=== PATIENT | male | born 1960 | race Caucasian/White ===

== ENCOUNTER 2016-07-25 10:57 | Inpatient (IN) | payer BC, MEDICARE ==
[~2016-07-25] VITALS: Ht 177.8 cm; Wt 71.2 kg
[~2016-07-25 10:57] MED LIST: AMLO5TAB2 PO; DOXY100T PO; ERGO500012 PO; FENT1PAT21 TP; FLUT200B INH; LANS30CA PO; LISI10TA2 PO; METO50TA2 PO; PRED-220 PO; PROVENTIL HFA6.7 GM IH; TIOT18CA IH
[2016-07-25] MEDS ORDERED: NITROGLYCERIN SUBLINGUAL 0.4 MG BOTTLE OF 25. SL PRN (11:30)
--- NOTE | 2016-07-25 11:46 | RAD ---
EXAM: Chest, single view. HISTORY: Chest pain. COMPARISON: 12/03/2015. FINDINGS: A frontal view of the chest is obtained. There is no infiltrate, effusion or pneumothorax. The heart is normal in size. There is stable widening of the right peritoneal stripe likely due to tortuous arch great vessels. There are calcified mediastinal granulomas. IMPRESSION: No acute pulmonary finding.
[2016-07-25 11:47] LABS: BASO % 0 % (0-3); EOS % 1 % (0-3); HEMATOCRIT 44.1 % (39.0-53.0); HEMOGLOBIN 15.2 g/dL (13.0-17.5); LYMPH # 0.9 x10^3/uL (1.0-4.8); LYMPH % 22 % (24-48); MEAN CORPUSCULAR HEMOGLOBIN 37 pg (25-35); MEAN CORPUSCULAR HGB CONC 35 g/dL (31-37); MEAN CORPUSCULAR VOLUME 108 fL (79-100); MONO % 11 % (0-9); NEUT % 66 % (31-73); PLATELET COUNT 113 x10^3/uL (140-400)
[2016-07-25 11:56] LABS: PROTHROMBIN TIME PATIENT 12.5 SEC (11.7-14.0)
[2016-07-25 11:57] LABS: CALCIUM 9.1 mg/dL (8.5-10.1); CREATININE 0.7 mg/dL (0.7-1.3); GFR 116.7; POTASSIUM 3.7 mmol/L (3.5-5.1)
[2016-07-25] MEDS ORDERED: ASPIRIN CHEWABLE 81 MG TABLET. PO ONE (12:00)
[2016-07-25 12:03] LABS: ALBUMIN 3.4 g/dL (3.4-5.0); DIRECT BILIRUBIN 0.2 mg/dL (0.0-0.2); TOTAL BILIRUBIN 0.7 mg/dL (0.2-1.0); TOTAL PROTEIN 7.2 g/dL (6.4-8.2)
[2016-07-25 12:11] LABS: CKMB INDEX 3.5 % (0-4)
--- NOTE | 2016-07-25 12:20 | EKG ---
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
--- NOTE | 2016-07-25 12:25 | PHYS DOC ---
Past Medical History Past Medical History: GERD, Heart Disease, Hypertension, Other Additional Past Medical Histor: cardiomyopathy,chronic back pain,DDD, fullbodyneuropathy vsIBM,sleepApnea Past Surgical History: Other Additional Past Surgical Histo: knee sx, urological sx Additional Information: 1/3 of a cigar. Alcohol Use: Occasionally Additional Information: 2 drinks a day. 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 The pain is a tightness and it feels like he can't get a deep enough breath. It's across the center of his chest, slightly worse on the left. He feels dizzy and lightheaded with it. He has not had this type of chest pain before. He has never had a heart attack. Years ago he had a heart catheter and he doesn't believe it showed any coronary artery disease. Patient does have hypertension, he smokes one half cigar daily on most days. He did take his blood pressure medicine this morning. Patient also has a history of wheezing and he took 2 puffs of his albuterol inhaler this morning but that does not seem to be helping. He does have a history of "severe cardiomyopathy with an enlarged heart". He states "they don't know why" he has cardiomyopathy. Once they thought it "might be alcohol". He states he has not had a drink in 4 days and he usually drinks 2 "cocktails" per day. Patient attributes his cardiomyopathy as well as several other medical problems to "stress". He also has "whole body neuropathy". 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 Patient also told me that he had been on fentanyl 100 g patches for chronic pain, he didn't like being on those patches so in cooperation with his doctor he has been decreasing his dose, each decrease has been 1 month in duration, he just recently went down from 50 to 25[address] [employer] [address]ician [address]. Mccormick PCP Dr Elaine Review of Systems Review of Systems Constitutional: Denies fever or chills [] Eyes: Denies change in visual acuity, redness, or eye pain [] HENT: Denies nasal congestion or sore throat [] Respiratory: Denies cough or shortness of breath [] Cardiovascular: As in history of present illness GI: Denies abdominal pain, nausea, vomiting, bloody stools or diarrhea [] : Denies dysuria or hematuria [] Musculoskeletal: Denies back pain or joint pain [] Integument: Denies rash or skin lesions [] Neurologic: Complains of chronic pain, neck pain, neuropathy. Current Medications Current Medications Current Medications Medications (Trade) Dose Ordered Sig/Maryann Start Time Stop Time Status Last Admin Dose Admin Aspirin (Children'S Aspirin) 324 mg 1X ONCE 07/25/16 12:00 07/25/16 12:01 DC 07/25/16 11:41 324 MG Nitroglycerin (Nitrostat) 0.4 mg PRN Q5MIN PRN 07/25/16 11:30 07/26/16 11:29 07/25/16 11:44 0.4 MG Allergies Allergies Allergies Coded Allergies Type Severity Reaction Last Updated Verified codeine Adverse Reaction Mild Nausea and Vomiting 06/28/14 Yes Physical Exam Physical Exam Constitutional: Well developed, well nourished, no acute distress, non-toxic appearance. Alert, mentating normally, good color. HENT: Normocephalic, atraumatic, bilateral external ears normal, oropharynx moist, no oral exudates, nose normal. [] Eyes: conjunctiva normal, no discharge. [] Neck: Normal range of motion, no stridor. [] Cardiovascular:Heart rate regular rhythm, no murmur [] Lungs & Thorax: Bilateral breath sounds clear to auscultation , good air movement throughout, no wheezes, no rales Abdomen: Bowel sounds normal, soft, no tenderness, nondistended, no masses, no pulsatile masses. [] Skin: Warm, dry, no erythema, no rash. [] Extremities: No tenderness, no cyanosis, no clubbing, ROM intact, no edema. [] Neurologic: Alert and oriented X 3, normal motor function, normal sensory function, no focal deficits noted. [] Current Patient Data Vital Signs Vital Signs Date Time Temp Pulse Resp B/P Pulse Ox O2 Delivery O2 Flow Rate FiO2 07/25/16 11:44 58 172/97 07/25/16 11:41 17 94 Room Air 07/25/16 11:11 98.4 98.4 Lab Values Laboratory Tests Test 07/25/16 11:32 White Blood Count 4.0x10^3/uL (4.0-11.0) Red Blood Count 4.10x10^6/uL (4.30-5.70) L Hemoglobin 15.2g/dL (13.0-17.5) Hematocrit 44.1% (39.0-53.0) Mean Corpuscular Volume 108fL (79-100) H Mean Corpuscular Hemoglobin 37pg (25-35) H Mean Corpuscular Hemoglobin Concent 35g/dL (31-37) Red Cell Distribution Width 15.0% (11.5-14.5) H Platelet Count 113x10^3/uL (140-400) L Neutrophils (%) (Auto) 66% (31-73) Lymphocytes (%) (Auto) 22% (24-48) L Monocytes (%) (Auto) 11% (0-9) H Eosinophils (%) (Auto) 1% (0-3) Basophils (%) (Auto) 0% (0-3) Neutrophils # (Auto) 2.6x10^3uL (1.8-7.7) Lymphocytes # (Auto) 0.9x10^3/uL (1.0-4.8) L Monocytes # (Auto) 0.4x10^3/uL (0.0-1.1) Eosinophils # (Auto) 0.0x10^3/uL (0.0-0.7) Basophils # (Auto) 0.0x10^3/uL (0.0-0.2) Prothrombin Time 12.5SEC (11.7-14.0) Prothrombin Time INR 1.0 (0.8-1.1) Sodium Level 142mmol/L (136-145) Potassium Level 3.7mmol/L (3.5-5.1) Chloride Level 104mmol/L (98-107) Carbon Dioxide Level 31mmol/L (21-32) Anion Gap 7 (6-14) Blood Urea Nitrogen 11mg/dL (8-26) Creatinine 0.7mg/dL (0.7-1.3) Estimated GFR (Cockcroft-Gault) 116.7 Glucose Level 107mg/dL (70-99) H Calcium Level 9.1mg/dL (8.5-10.1) Magnesium Level 2.0mg/dL (1.8-2.4) Total Bilirubin 0.7mg/dL (0.2-1.0) Direct Bilirubin 0.2mg/dL (0.0-0.2) Aspartate Amino Transferase (AST) 83U/L (15-37) H Alanine Aminotransferase (ALT) 45U/L (16-63) Alkaline Phosphatase 88U/L (46-116) Creatine Kinase 113U/L (39-308) Creatine Kinase MB (Mass) 4.0ng/mL (0.0-3.6) H Creatine Kinase MB Relative Index 3.5% (0-4) Troponin I Quantitative < 0.017ng/mL (0.000-0.055) ZA-Blb-U-Type Natriuretic Peptide 543pg/mL (0-124) H Total Protein 7.2g/dL (6.4-8.2) Albumin 3.4g/dL (3.4-5.0) Laboratory Tests 07/25/16 11:32 Laboratory Tests 07/25/16 11:32 EKG EKG 12-lead EKG read by me. Sinus rhythm. Heart rate 58. There are no acute ST or T wave changes indicative of ischemia or infarction. No STEMI. 1107 [] Radiology/Procedures Radiology/Procedures One view portable chest x-ray read by the radiologist. Heart size is normal. Lung negron are clear. No pulmonary edema or other acute problem. [] Course & Med Decision Making Course & Med Decision Making Pertinent Labs and Imaging studies reviewed. (See chart for details) 55-year-old male with a history of cardiomyopathy, by his history it sounds likely to be alcoholic, presents with some substernal chest tightness today that is new for him. He does not have a history of ischemic heart disease. I discussed with him that we need to get some labs, chest x-ray, we will try a nitroglycerin and give him aspirin, but he likely will need to be hospitalized for rule out ischemic pain and further evaluation. ED nursing staff reported that the patient's blood pressure dropped from 170s to 120s after one sublingual nitroglycerin so that the only one he got. He did get a aspirin. I told the patient that from my assessment of his situation, in case he has never been told before, his cardiomyopathy may very well be due to alcohol and that he should not drink any at all, not even a little bit. He states he has never been told that before so I clarified that indeed that is the recommendation. Cardiac enzymes negative. ED evaluation otherwise unremarkable. I do feel the patient should be hospitalized to rule out cardiac etiology of the pain and he is agreeable to do so. I discussed the case with Dr. Jennings, taking calls for Dr. Elaine. He will admit the patient. I wrote bridge orders. [] Dragon Disclaimer Dragon Disclaimer This electronic medical record was generated, in whole or in part, using a voice recognition dictation system. Departure Departure Impression: Primary Impression: Chest pain Disposition: ADMITTED INPATIENT Admitting Physician: Leonides Jennings Condition: STABLE Referrals: KIERSTEN ELAINE MD (PCP) SCOTT FUENTES MD Jul 25, 2016 12:25
[2016-07-25 13:25] VITALS: BP 172/108
[2016-07-25] MEDS ORDERED: ALBU8.5H5 INH (14:05)
[2016-07-25] MEDS ORDERED: FENT1PAT15 TD (14:05)
[2016-07-25] MEDS ORDERED: CHLO10CA5 PO (14:05)
[2016-07-25] MEDS ORDERED: METO50TA10 PO (14:05)
[2016-07-25 14:40] VITALS: BP 161/99
[2016-07-25] MEDS ORDERED: ACETAMINOPHEN 325 MG TABLET. PO PRN (18:30)
[2016-07-25] MEDS ORDERED: MORPHINE SULFATE 2 MG/ML DISP.SYRIN. IV PRN (18:30)
[2016-07-25] MEDS ORDERED: HYDROCODONE/APAP 5/325MG TABLET. PO PRN (18:30)
[2016-07-25] MEDS ORDERED: ANTI-COAG MONITOR BY PHARMACY. MC PRN (18:45)
[2016-07-25] MEDS ORDERED: HEPARIN 25,000UTS/500ML PREMIX 500 ML IV PRN ×3 (18:45→20:45)
[2016-07-25] MEDS ORDERED: AMLODIPINE BESYLATE 5 MG TABLET. PO PRN (18:45)
[2016-07-25 19:00] VITALS: BP 143/90
[2016-07-25] MEDS ORDERED: AMLODIPINE BESYLATE 5 MG TABLET. PO ONE (19:00)
[2016-07-25] MEDS ORDERED: HEPARIN 25,000UTS/500ML PREMIX 500 ML IV ONE (19:00)
[2016-07-25] MEDS ORDERED: HEPARIN for IV BOLUS 10,000 UNIT/10 ML VIAL. IV PRN (19:45)
[2016-07-25 20:29] VITALS: BP 159/91
[2016-07-25] MEDS: LISINOPRIL 10 MG TABLET PO SCH (21:11)
[2016-07-25] MEDS ORDERED: LORAZEPAM 0.5 MG TABLET. PO PRN (21:15)
[2016-07-25 23:41] VITALS: BP 139/73
[2016-07-26 02:20] LABS: HEMATOCRIT 38.9 % (39.0-53.0); HEMOGLOBIN 12.9 g/dL (13.0-17.5); RED BLOOD COUNT 3.53 x10^6/uL (4.30-5.70); RED CELL DISTRIBUTION WIDTH 14.7 % (11.5-14.5); WHITE BLOOD COUNT 3.7 x10^3/uL (4.0-11.0)
[2016-07-26] MEDS ORDERED: FENTANYL 25MCG/HR PATCH. TD SCH (03:00)
[2016-07-26 03:29] VITALS: BP 167/88
[2016-07-26] MEDS ORDERED: PANTOPRAZOLE 40 MG TABLET.DR. PO SCH (07:30)
[2016-07-26 07:50] VITALS: BP 166/98
[2016-07-26] MEDS: IPRATRPIUM/ALBUTEROL 0.5/2.5MG 3 ML NEBU. NEB SCH ×2 (08:06→11:06)
[2016-07-26] MEDS: LISINOPRIL 10 MG TABLET PO SCH (08:10)
--- NOTE | 2016-07-26 10:58 | PDOC ---
Provider Note Provider Note See admission H&P dictation #[id number] Impression: 1. Atypical chest pain: 2. Hypertension: 3. Chronic back pain with neuropathy: 4. Mild pancytopenia, chronic and possibly due to alcohol abuse: 5. History of hiatal hernia, GERD: 6. Reported history of cardiomyopathy with an ejection fraction of 55% in 11/2015 : 7. Recent viral illness: 8. Obstructive sleep apnea: ZAK CONTRERAS MD Jul 26, 2016 10:58
[2016-07-26 11:59] VITALS: BP 164/96
[2016-07-26] MEDS ORDERED: AMLODIPINE BESYLATE 10 MG TABLET. PO SCH (12:00)
[2016-07-26 12:09] VITALS: BP 167/88
--- NOTE | 2016-07-26 12:24 | PDOC2 ---
CONSULT Date of Consult Date of Consult DATE: 07/26/16 TIME: 12:17 Reason for Consult Reason for Consult: chest pain Referring Physician Referring Physician: Dr. Jennings Identification/Chief Complaint Chief Complaint Chest pain Source Source: Patient History of Present Illness Reason for Visit: The patient is a 55-year-old male admitted last night through the emergency room for episodes of chest pain. Posttreatment the patient improved and this morning the patient has had no chest pain. He reports a history of a cardiomyopathy but not probable coronary artery disease. He did have an echocardiogram in November of last year that showed a normal ejection fraction. Initial EKG showed sinus rhythm with nonspecific ST-T wave changes. Troponins have been normal 3. He is now resting comfortably in bed. Past Medical History Cardiovascular: CHF, HTN, Other (possible cardiomyopathy.) CENTRAL NERVOUS SYSTEM: Periperal neuropathy GI: GERD Musculoskeletal: Other (chronic back pain.) Past Surgical History Past Surgical History: No pertinent history Family History Family History: Heart Disease Social History ALCOHOL: other (the patient reports 2 drinks a day. He also occasionally smokes cigars.) Lives: with Family Domestic Violence: Neg Current Problem List Problem List Problems Medical Problems: (1) Chest pain Status: Acute Current Medications Current Medications Current Medications Aspirin (Children'S Aspirin) 324 mg 1X ONCE PO Last administered on 07/25/16 11:41; Start 07/25/16 at 12:00; Stop 07/25/16 at 12:01; Status DC Nitroglycerin (Nitrostat) 0.4 mg PRN Q5MIN PRN SL CP RATING > 1/10 Last administered on 07/25/16 11:44; Start 07/25/16 at 11:30; Stop 07/26/16 at 11:29; Status DC Morphine Sulfate 2 mg PRN Q2HR PRN IV PAIN; Start 07/25/16 at 18:30 Acetaminophen/ Hydrocodone Bitart (Lortab 5/325) 1 tab PRN Q4HRS PRN PO PAIN Last administered on 07/26/16 01:00; Start 07/25/16 at 18:30 Acetaminophen (Tylenol) 650 mg PRN Q6HRS PRN PO MILD PAIN / TEMP Last administered on 07/25/16 18:52; Start 07/25/16 at 18:30 Amlodipine Besylate (Norvasc) 5 mg 1X ONCE PO Last administered on 07/25/16 18 :46; Start 07/25/16 at 19:00; Stop 07/25/16 at 19:01; Status DC Amlodipine Besylate 5 mg 5 mg PRN Q4HRS PRN PO ELEVATED BP, SEE COMMENTS; Start 07/25/16 at 18:45 Heparin Sodium/ Dextrose 500 ml @ 0 mls/hr CONT PRN IV SEE I/O RECORD; Start at 18:45; Status Cancel Info 1 each 1 each PRN DAILY PRN MC SEE COMMENTS; Start 07/25/16 at 18:45 Heparin Sodium/ Dextrose 500 ml @ 0 mls/hr 1X ONCE IV Last administered on 07/25 20:13; Start 07/25/16 at 19:00; Stop 07/25/16 at 19:01; Status DC Heparin Sodium/ Dextrose 500 ml @ 0 mls/hr CONT PRN IV SEE I/O RECORD; Start at 19:45; Status Cancel Heparin Sodium (Porcine) 1800 unit 1,800 unit PRN Q6HRS PRN IV FOR UFH LEVEL LESS THAN 0.2 Last administered on 07/25/16 20:44; Start 07/25/16 at 19:45 Heparin Sodium/ Dextrose 500 ml @ 0 mls/hr CONT PRN IV SEE I/O RECORD Last administered on 07/25/16 20:15; Start 07/25/16 at 20:45 Lorazepam (Ativan) 0.5 mg PRN TID PRN PO WITHDRAWAL IRRITABILITY Last administered on 07/25/16 21:11; Start 07/25/16 at 21:15 Fentanyl (Duragesic 25mcg/ Hr Patch) 1 patch Q3DAYS TD Last administered on 07/26 02:14; Start 07/26/16 at 03:00 Lisinopril (Prinivil) 10 mg BID PO Last administered on 07/26/16 08:10; Start 07/25/16 at 21:00 Pantoprazole Sodium (Protonix) 40 mg DAILYAC PO Last administered on 07/26/16 08:09; Start 07/26/16 at 07:30 Albuterol/ Ipratropium (Duoneb) 3 ml RTQID NEB ; Start 07/26/16 at 08:00 Amlodipine Besylate (Norvasc) 10 mg DAILY PO Last administered on 07/26/16t 12: 09; Start 07/26/16 at 12:00 Active Scripts Active Spiriva (Tiotropium [place]) 18 Mcg Cap.w.dev 1 Cap IH DAILY Lisinopril 10 Mg Tablet 20 Tab PO BID Reported Metoprolol Succinate 50 Mg Tab.er.24h 50 Mg PO DAILY Proair Hfa (Albuterol Sulfate) 8.5 Gm Hfa.aer.ad 1-2 Puff INH PRN Q4-6HRS PRN FENTANYL 25mcg/hr (Fentanyl) 1 Each Patch.td72 25 Mcg TD Q3DAYS Chlordiazepoxide Hcl 10 Mg Capsule 10 Mg PO PRN TID PRN Lansoprazole 30 Mg Capsule.dr 1 Cap PO DAILY Allergies Allergies: Coded Allergies: codeine (Verified Adverse Reaction, Mild, Nausea and Vomiting, 06/28/14) ROS General: YES: Fatigue Cardiovascular: yes Chest Pain Musculoskeletal: Yes Joint Pain Physical Exam General: No acute distress HEENT: Atraumatic Lungs: Clear to auscultation Heart: Regular rate Abdomen: Normal bowel sounds Extremities: No clubbing Vitals VITALS Vital Signs Date Time Temp Pulse Resp B/P Pulse Ox O2 Delivery O2 Flow Rate FiO2 07/26/16 12:09 55 167/88 07/26/16 08:06 94 Room Air 07/26/16 07:50 97.1 18 97.1 Labs Labs Laboratory Tests Test 07/25/16 11:32 07/25/16 18:40 07/26/16 02:00 07/26/16 08:52 White Blood Count 4.0x10^3/uL (4.0-11.0) 3.7x10^3/uL (4.0-11.0) Red Blood Count 4.10x10^6/uL (4.30-5.70) 3.53x10^6/uL (4.30-5.70) Hemoglobin 15.2g/dL (13.0-17.5) 12.9g/dL (13.0-17.5) Hematocrit 44.1% (39.0-53.0) 38.9% (39.0-53.0) Mean Corpuscular Volume 108fL (79-100) 110fL (79-100) Mean Corpuscular Hemoglobin 37pg (25-35) 37pg (25-35) Mean Corpuscular Hemoglobin Concent 35g/dL (31-37) 33g/dL (31-37) Red Cell Distribution Width 15.0% (11.5-14.5) 14.7% (11.5-14.5) Platelet Count 113x10^3/uL (140-400) 101x10^3/uL (140-400) Neutrophils (%) (Auto) 66% (31-73) Lymphocytes (%) (Auto) 22% (24-48) Monocytes (%) (Auto) 11% (0-9) Eosinophils (%) (Auto) 1% (0-3) Basophils (%) (Auto) 0% (0-3) Neutrophils # (Auto) 2.6x10^3uL (1.8-7.7) Lymphocytes # (Auto) 0.9x10^3/uL (1.0-4.8) Monocytes # (Auto) 0.4x10^3/uL (0.0-1.1) Eosinophils # (Auto) 0.0x10^3/uL (0.0-0.7) Basophils # (Auto) 0.0x10^3/uL (0.0-0.2) Prothrombin Time 12.5SEC (11.7-14.0) Prothromb Time International Ratio 1.0 (0.8-1.1) Sodium Level 142mmol/L (136-145) Potassium Level 3.7mmol/L (3.5-5.1) Chloride Level 104mmol/L (98-107) Carbon Dioxide Level 31mmol/L (21-32) Anion Gap 7 (6-14) Blood Urea Nitrogen 11mg/dL (8-26) Creatinine 0.7mg/dL (0.7-1.3) Estimated GFR (Cockcroft-Gault) 116.7 Glucose Level 107mg/dL (70-99) Calcium Level 9.1mg/dL (8.5-10.1) Magnesium Level 2.0mg/dL (1.8-2.4) Total Bilirubin 0.7mg/dL (0.2-1.0) Direct Bilirubin 0.2mg/dL (0.0-0.2) Aspartate Amino Transf (AST/SGOT) 83U/L (15-37) Alanine Aminotransferase (ALT/SGPT) 45U/L (16-63) Alkaline Phosphatase 88U/L (46-116) Creatine Kinase 113U/L (39-308) Creatine Kinase MB (Mass) 4.0ng/mL (0.0-3.6) Creatine Kinase MB Relative Index 3.5% (0-4) Troponin I Quantitative < 0.017ng/mL (0.000-0.055) < 0.017ng/mL (0.000-0.055) < 0.017ng/mL (0.000-0.055) GX-Zbp-M-Type Natriuretic Peptide 543pg/mL (0-124) Total Protein 7.2g/dL (6.4-8.2) Albumin 3.4g/dL (3.4-5.0) Heparin Anti-Xa Act, Unfractionated 0.22IU/mL (0.30-0.70) 0.32IU/mL (0.30-0.70) Laboratory Tests Test 07/25/16 18:40 07/26/16 02:00 07/26/16 08:52 Troponin I Quantitative < 0.017ng/mL (0.000-0.055) < 0.017ng/mL (0.000-0.055) White Blood Count 3.7x10^3/uL (4.0-11.0) Red Blood Count 3.53x10^6/uL (4.30-5.70) Hemoglobin 12.9g/dL (13.0-17.5) Hematocrit 38.9% (39.0-53.0) Mean Corpuscular Volume 110fL (79-100) Mean Corpuscular Hemoglobin 37pg (25-35) Mean Corpuscular Hemoglobin Concent 33g/dL (31-37) Red Cell Distribution Width 14.7% (11.5-14.5) Platelet Count 101x10^3/uL (140-400) Heparin Anti-Xa Act, Unfractionated 0.22IU/mL (0.30-0.70) 0.32IU/mL (0.30-0.70) Images Images Chest x-ray shows no acute changes. Assessment/Plan Assessment/Plan 1. Chest pain. Pain has resolved. No acute EKG changes are present. The patient has ruled out for myocardial infarction. At this time would continue medical treatment. Will consider possible outpatient stress testing. 2. Reported history of a cardiomyopathy. Echocardiogram last summer showed normal ejection fraction. Would recheck an echocardiogram to determine if the patient has any decrease in his LV function. 3. Hypertension. Patient blood pressure is under control. Continue to monitor. 4. Gastroesophageal reflux disease. Patient's chest pain may have been secondary to this. Continue present treatments. 5. Chronic pain. History of significant use of pain medications. Will continue as per the primary service. Thank you for allowing us to participate in the care of your patient. ALEX ESPANA MD Jul 26, 2016 12:24
--- NOTE | 2016-07-26 13:04 | CARD ---
APPROVED REPORT EXAM: Two-dimensional and M-mode echocardiogram with Doppler and color Doppler. Other Information Quality : Technically Limited Technically limited study due to rib spacing. INDICATION Dyspnea Cardiomyopathy 2D DIMENSIONS RVDd2.7 (2.9-3.5cm)Left Atrium(2D)3.4 (1.6-4.0cm) IVSd1.1 (0.7-1.1cm)Aortic Root(2D)2.4 (2.0-3.7cm) LVDd4.5 (3.9-5.9cm)LVOT Diameter2.1 (1.8-2.4cm) PWd1.0 (0.7-1.1cm)LVDs2.4 (2.5-4.0cm) FS (%) 25.0 %SV71.9 ml LVEF(%)50.0 (>50%) Aortic Valve AoV Peak Chetan.111.6cm/sAoV VTI22.5cm AO Peak GR.5.0mmHgLVOT VTI 17.52cm AO Mean GR.3mmHgAVA (VTI)2.70cm2 Mitral Valve MV E Vwvupsik68.3cm/sMV DECEL HIFT091qe MV A Vdkrxatd48.6cm/sE/A Ratio1.1 TDI Lateral E' P. V7.98cm/sMedial E' P. V5.86cm/s E/Lateral E'8.9E/Medial E'12.2 Tricuspid Valve TR P. Drjrxbhh949wp/sRAP [id number] TR Peak Gr.86ozQeFWGP11sfMd Pulmonary Vein S1 Lkhmkevc68.2cm/sS2 Vndvqvyp07.81cm/s D2 Lnqldsyu54.8cm/sPVa [id number] LEFT VENTRICLE The left ventricle is normal size. There is normal left ventricular wall thickness. Left ventricle sy stolic function is low normal. The Ejection Fraction is 50-55%. There is normal LV segmental wall mot ion. Transmitral Doppler flow pattern is Grade II-pseudonormal filling dynamics. RIGHT VENTRICLE The right ventricle is normal size. The right ventricular systolic function is normal. ATRIA The left atrium size is normal. The right atrium size is normal. The interatrial septum is intact wit h no evidence for an atrial septal defect or patent foramen ovale as noted on 2-D or Doppler imaging. AORTIC VALVE The aortic valve is calcified but opens well. Doppler and Color Flow revealed no significant aortic r egurgitation. There is no significant aortic valvular stenosis. MITRAL VALVE The mitral valve is calcified but opens well. There is no evidence of mitral valve prolapse. There is no mitral valve stenosis. Doppler and Color-flow revealed mild mitral regurgitation. TRICUSPID VALVE The tricuspid valve is normal in structure and function. Doppler and Color Flow revealed trace tricus pid regurgitation. The PA pressure was estimated at 26 mmHg. There is no tricuspid valve stenosis. PULMONIC VALVE The pulmonary valve is normal in structure and function. Doppler and Color Flow revealed no pulmonic valvular regurgitation. There is no pulmonic valvular stenosis. GREAT VESSELS The aortic root is normal in size. The ascending aorta is not well seen. The IVC is normal in size an d collapses >50% with inspiration. PERICARDIAL EFFUSION There is no evidence of significant pericardial effusion. Critical Notification Critical Value: No <Conclusion> The left ventricle is normal size. Left ventricle systolic function is low normal. The Ejection Fraction is 50-55%. There is no significant aortic valvular stenosis. Doppler and Color Flow revealed no significant aortic regurgitation. Doppler and Color-flow revealed mild mitral regurgitation. Doppler and Color Flow revealed trace tricuspid regurgitation. The PA pressure was estimated at 26 mmHg.
--- NOTE | 2016-07-26 13:22 | DISCH ---
DISCHARGE INSTRUCTIONS Condition on Discharge Condition on Discharge: Stable Activity After Discharge Activity Instructions for Disc: Activity as tolerated Diet after Discharge Diet after Discharge: Cardiac Additional Diet Restrictions: No ETOH Checks after Discharge Checks after discharge: Check blood press - daily Follow-Up Follow up with: Dr Elaine in 1-2 weeks ZAK CONTRERAS MD Jul 26, 2016 13:22
[2016-07-26] MEDS ORDERED: AMLO10TA2 PO (13:25)
[2016-07-26] MEDS ORDERED: METO50TA10 PO (13:25)
--- NOTE | 2016-07-26 13:27 | PDOC ---
Provider Note Provider Note See discharge summary dictation #[id number] ZAK CONTRERAS MD Jul 26, 2016 13:27
[2016-07-26] MEDS ORDERED: IPRATRPIUM/ALBUTEROL 0.5/2.5MG 3 ML NEBU. NEB PRN (14:45)
--- NOTE | 2016-07-26 15:15 | HP ---
ADMIT DATE: 07/26/2016 CHIEF COMPLAINT: Mid chest pain. HISTORY OF PRESENT ILLNESS: The patient is a 55-year-old male with history of hypertension, possible alcohol abuse, obstructive sleep apnea, hiatal hernia and gastroesophageal reflux disease who noted the onset of pain in his mid chest yesterday when he was bending over and watering his cha. He then stood up and felt somewhat lightheaded. He did have some associated shortness of breath with this, but no radiation of the pain. He tried to use his albuterol with no relief. He noted his blood pressure was 186/110, prompting his evaluation in the Emergency Room. When he was seen in the Emergency Room, he did receive nitroglycerin and he thinks that may have helped a little bit with the pain. He has been having symptoms of heartburn and reflux for which he takes [id number] medication normally. He denies any palpitations. There has been no lower extremity swelling. He is getting over a recent viral illness, which has been going on for the last week. PAST MEDICAL HISTORY: Significant for hypertension, history of reported cardiomyopathy many years ago but appears to be resolved with an echocardiogram in 11/2015, which showed an ejection fraction of 55%, central serous chorioretinopathy, spinal stenosis and chronic low back pain with neuropathy, alcohol abuse, COPD, history of DVT, obstructive sleep apnea, vitamin D deficiency, hiatal hernia and gastroesophageal reflux disease. PAST SURGICAL HISTORY: Left knee surgery, urethral stricture, nasal surgery, left sural nerve biopsy complicated by cellulitis. SOCIAL HISTORY: The patient smokes a a cigar per day. He denies drinking any alcohol for the last 5 days. He is recently and living on his own. FAMILY HISTORY: Father with heart disease and emphysema. Mother with cancer. ALLERGIES TO MEDICATIONS: CODEINE CAUSES GI UPSET. MEDICATIONS: At the time of admission, he has been weaning off fentanyl and was on 100 mcg per hour, but is currently on 25 mcg per hour, albuterol metered dose inhaler 2 puffs q.i.d. p.r.n., Prevacid 30 mg p.o. daily, lisinopril 20 mg p.o. b.i.d., Toprol-XL 50 mg p.o. daily, Spiriva 1 puff daily, Librium 10 mg p.o. t.i.d. p.r.n. withdrawal symptoms. REVIEW OF SYSTEMS: The patient denies any fevers. He has had some upper respiratory congestion with cold symptoms, recently he has been swallowing without any difficulty. He denies any cough or production of sputum at this point. He denies any palpitations, no lower extremity swelling. He denies any nausea or vomiting, although he does have heartburn and reflux, but sometimes causes him to vomit in the middle of the night, but not recently. He denies any melena or blood in his stools. He is voiding without any difficulty and denies any dysuria or hematuria. He has peripheral neuropathy with decreased sensation throughout. He usually gets around relatively well on a level surface, but uses a cane at times. He says that his mood is okay. PHYSICAL EXAMINATION: VITAL SIGNS: At time of admission, temperature 98.4, pulse 69, respiratory rate 20, blood pressure 198/95, O2 sat 97% on room air. GENERAL: The patient is a well-developed, well-nourished male in no acute distress. He appears to be alert and oriented. HEENT: The pupils are equal and round. Extraocular motions are intact. The sclerae is anicteric. The oropharynx is moist. NECK: Without JVD or bruit. No thyromegaly. CHEST: Clear to auscultation bilaterally with okay air movement. There is no significant tenderness to palpation. CARDIOVASCULAR: The heart has a regular rate and rhythm without murmur. ABDOMEN: Positive bowel sounds, soft, nontender, nondistended. No guarding or rebound. EXTREMITIES: There is no edema. NEUROLOGIC: Decreased sensation in the extremities. He does have movement that is symmetric of all the extremities. PSYCHIATRIC: He denies any depression. He appears calm. SKIN: No jaundice. LABORATORY DATA: At the time of admission, WBC 4.0, hemoglobin 15.2, hematocrit 44.1, platelets 113. On repeat this morning, WBC was 3.7, hemoglobin was 12.9 and platelets were 101. INR is 1.0. Sodium 142, potassium 3.7, chloride 104, CO2 of 31, BUN 11, creatinine 0.7, glucose 107, AST was 83, serial troponins x 3 less than 0.017. BNP was 543, albumin was 3.4. Chest x-ray did not show any acute abnormality. The heart was normal size. EKG on preliminary reading showed normal sinus rhythm without any apparent ischemic changes. IMPRESSION: 1. Atypical chest pain could be related to his hiatal hernia, given the onset of his symptoms when he was bending over. 2. Hypertension. 3. Chronic back pain with neuropathy. 4. Mild pancytopenia, chronic and possibly due to alcohol abuse. 5. History of hiatal hernia and gastroesophageal reflux disease. 6. Reported history of cardiomyopathy with an ejection fraction of 55%; however in 11/2015. 7. Recent viral illness. 8. Obstructive sleep apnea. PLAN: The patient is admitted. Cardiology was consulted and echocardiogram has been ordered. This most likely is noncardiac in etiology, but we will defer to cardiology's evaluation and workup. The patient strongly desires to be discharged today. If it is okay with cardiology, he could do additional outpatient workup if needed. We will have him continue his other home medications except for holding the metoprolol for right now since his pulse was slightly low. We will monitor for symptoms of withdrawal, although he does have p.r.n. Librium ordered. We will use DuoNeb breathing treatments on a scheduled basis right now. He was strongly encouraged to continue his abstinence from alcohol. ZAK CONTRERAS MD DR: MARKELL/ruthy JOB#: [id number] / [id number]
[2016-07-26] MEDS ORDERED: ALBUTEROL SULFATE 2.5 MG/3 ML NEBU. NEB PRN (16:00)
--- NOTE | 2016-07-26 21:29 | DS ---
DATE OF DISCHARGE: 07/26/2016 ATTENDING PHYSICIAN: Dr. Zak Contreras. CHIEF COMPLAINT: Chest pain. HISTORY OF PRESENT ILLNESS: The patient is a 55-year-old male who had an episode of chest pain that began when he was bending over watering his cha. This continued with some associated shortness of breath, prompting his evaluation in the Emergency Room. HOSPITAL COURSE: The patient was admitted. Serial cardiac enzymes were negative. He was seen in consultation with Cardiology. He had an echocardiogram done which showed, by verbal report, that there is no significant abnormality. It was felt that his pain was likely due to hiatal hernia or gastroesophageal reflux symptoms. He was also noted to be mildly pancytopenic, probably due to his chronic alcohol abuse. His other chronic problems were stable. DISCHARGE DIAGNOSES: 1. Atypical chest pain, likely due to hiatal hernia and gastroesophageal reflux disease. 2. Hypertension, which his medications were adjusted. 3. Chronic back pain with neuropathy. 4. Mild pancytopenia, which is chronic and likely due to alcohol abuse. DISCHARGE DIET: Cardiac diet. DISCHARGE ACTIVITIES: As tolerated. FOLLOWUP: The patient is to follow up with Dr. Elaine in 1-2 weeks. MEDICATIONS AT THE TIME OF DISCHARGE: Include amlodipine 10 mg p.o. daily, albuterol metered-dose inhaler 2 puffs q.i.d. p.r.n., Librium 10 mg p.o. t.i.d. p.r.n. withdrawal irritability, fentanyl patch 25 mcg per hour q. 72 hours, Prevacid 30 mg p.o. daily, lisinopril 20 mg p.o. b.i.d., Spiriva 1 puff daily, Toprol-XL was decreased to 0.5 mg p.o. daily because he was borderline bradycardic. ZAK CONTRERAS MD DR: MARKELL/ruthy JOB#: [id number] / [id number]
--- NOTE | 2016-07-27 12:34 | ACF ---
Admission Forms Criteria CARDIOLOGY GRG Clinical Indications for Admission to Inpatient Care ( Place 'X' for any and all applicable criteria): Hospital admission is needed for appropriate care of the patient because of ANY ONE of the following (1): [ ] I. Hemodynamic instability as indicated by ALL of the following (1)(2)(3) (4)(5) [ ]a) Vital signs or other findings not as expected for chronic patient condition or baseline [ ]b) Instability indicated by ANY ONE of the following: [ ]i) Hypotension [ ]ii) Symptomatic Tachycardia unresponsive to treatment ( e.g., analgesia, fluids, sedation as indicated) [ ]iii) Inadequate perfusion indicated by ANY ONE of the following: [ ] 1) Lactic acidosis (> 2 mmol/L) [ ] 2) New abnormal capillary refill (> 3 seconds) [ ] 3) Reduced urine output [ ] 4) New altered mental status [ ]iv) Orthostatic vital sign changes unresponsive to treatment (e.g., fluids) [ ]v) IV inotropic or vasopressor medication required to maintain adequate blood pressure or perfusion [ ] II. Severe heart failure as indicated by ANY ONE of the following(17)(18) [ ]a) Respiratory distress [ ]b) Hypotension [ ]c) Anasarca (refractory to outpatient therapy) [ ]d) Cardiac arrhythmias of immediate concern [ ]e) Myocardial ischemia [ ] III. Cardiac arrhythmias or findings of immediate concern indicated by ANY ONE of the following (19)(20): [ ] a) Heart rhythms that are inherently dangerous or unstable indicated by ANY ONE of the following (21)(22)(23): [ ] i) Resuscitated ventricular fibrillation or cardiac arrest [ ] ii) Ventricular escape rhythm [ ] iii) Sustained ventricular tachycardia (30 seconds or more of ventricular rhythm at greater than 100 beats per minute) [ ] iv) Nonsustained ventricular tachycardia and ANY ONE of the following: [ ] 1) Suspected cardiac ischemia as cause or consequence of ventricular tachycardia [ ] 2) In setting of acute myocarditis [ ] b) Unstable cardiac conduction defects indicated by ANY ONE of the following(23)(24)(25) [ ] i) Type II second-degree atrioventricular block [ ]ii) Third-degree atrioventricular block [ ]iii) New-onset left bundle branch block with suspected myocardial ischemia [ ]c) Any heart rhythm and ANY ONE of the following (21)(22)(26)(27) (28) [ ] i) Continuous long-term ECG monitoring needed (e.g., initiation of drug requiring monitoring for more than 24 hours) [ ] ii) Patient has automatic implanted cardioverter defibrillator that is repeatedly firing, malfunctioning, or in need of immediate adjustment of settings beyond the scope of ambulatory or observation care [ ]d) Heart rhythms of concern due to ANY ONE of the following: [ ] i) Hypotension [ ] ii) Respiratory distress [ ] iii) Association with other significant symptoms (e.g., bradycardia with syncope or ongoing dizziness, supraventricular tachycardia with chest pain (14)(15)(17) [ ] IV. Monitoring for cardiac contusion beyond the scope of observation care needed [A](30)(31)(32) [ ] V. Surgical or device complication (e.g., valve replacement complication , pacemaker dysfunction) (35)(41)(44)(45)(46) [ ] . Inpatient palliative care needed. [B](49) Also use Inpatient Palliative Care Criteria [ ] VII. Nonbacterial thrombotic (marantic) endocarditis (36)(43)(47)(48) [X] VIII. Cardiology condition, symptom, or finding for which emergency and observation care has failed or are not considered appropriate. [ ] IX. Acute valvular disease requiring inpatient as indicated by ANY ONE of the following (41) [ ]a) Acute valvular regurgitation (42) [ ]b) Noninfectious valvulitis (43) [ ]c) Obstructive valve thrombosis [ ]d) Paravalvular leak [ ]e) Other significant valvular disorder remaining after emergency or observation level of care (as appropriate) [ ]X. Pericardial disease requiring inpatient treatment as indicated by ANY ONE of the following (33)(34)(35)(36)(37) [ ]a) Suspected tamponade (38)(39)(40) [ ]b) Hemopericardium [ ]c) Other significant pericardial disorder remaining after emergency or observation level of care (as appropriate) [ ] XI. Cardiac ischemia beyond scope of emergency and observation care. [ ] XII. Hypertension requiring inpatient treatment as indicated by ANY ONE of the following (6)(7)(8) [ ]a) SBP greater than 220 mm Hg or DBP greater than 120 mmHg despite treatment [ ]b) SBP greater than 140 mm Hg or DBP greater than 100 mm Hg with evidence of acute end organ damage as indicated by ANY ONE of the following [ ] i) Encephalopathy [ ] ii) Acute renal failure as indicated by new onset of ANY ONE of the following (9)(10)(11)(12)(13) [ ]1) 3-fold rise in serum creatinine from baseline [ ]2) Serum creatinine greater than 4 mg/dL ( 354 micromoles/L) with acute rise greater than 0.5 mg/dL (44.2 micromoles/L) [ ]3) Reduction of more than 75% in estimated glomerular filtration rate from baseline [ ]4) Estimated glomerular filtration rate less than 35 mL/min/1.73m2 (0.59 mL/sec/1.73m2) in child up to 18 years of age [ ]5) Cessation of urine output indicated by ALL of the following [ ]A. Adequate volume status [ ]B. Inadequate urine output as indicated by ANY ONE of the following [ ]a. Urine output less than 0.3 mL/kg/hr for 24 hours [ ]b. Anuria (urine output less than 0.1 mL/kg/hr) for 12 hours [ ] iii) Aortic dissection [ ] iv) Myocardial Ischemia [ ] v) Left ventricular heart failure [ ]vi) Retinal Hemorrhage [ ]vii) Other significant finding [ ]c) Hypertension in child requiring inpatient treatment as indicated by ALL of the following(14)(15)(16) [ ] i) Outpatient treatment not effective, not available, or not appropriate [ ]ii) SBP or DBP greater than 95th percentile for age [ ]iii) Evidence of acute end organ damage as indicated by ANY ONE of the following [ ]1) Altered mental status [ ]2) Acute renal failure as indicated by new onset of ANY ONE of the following(9)(10)(11)(12)(13) [ ]A. 3-fold rise in serum creatinine from baseline [ ]B. Serum creatinine greater than 4 mg/dL (354 micromoles/L) with acute rise greater than 0.5 mg/dL (44.2 micromoles/L) [ ]C. Reduction of more than 75% in estimated glomerular filtration rate from baseline [ ]D. Estimated glomerular filtration rate less than 35 mL/min/1.73m2 (0.59 mL/sec/1.73m2) in child up to 18 years of age [ ]E. Cessation of urine output indicated by ALL of the following [ ]a. Adequate volume status [ ]b. Inadequate urine output as indicated by ANY ONE of the following [ ]i) Urine output less than 0.3 mL/kg/hr for 24 hours [ ]ii) Anuria ( urine output less than 0.1 mL/kg/hr) for 12 hours [ ]3) Severe headache [ ]4) Visual disturbance [ ]5) Retinal hemorrhage [ ]6) Other significant finding [ ]XIII. Complications of transplanted heart indicated by ANY ONE of the following(61): [ ]a) Acute graft rejection requiring inpatient management (eg, intravenous immunosuppression)(62)(63) [ ]b) Acute graft heart failure indicated by ANY ONE of the following(64): [ ]i) Hemodynamic instability [ ]ii) Cardiac arrhythmias of immediate concern [ ]iii) Pulmonary edema that is very severe (eg, mechanical ventilation needed, imminent or likely, need for 100% oxygen to keep oxygen saturation above 90%) [ ]iv) Pulmonary edema that is persistent as indicated by ALL of the following: [ ]1) New need for oxygen therapy to keep oxygen saturation above 90% (or increased FiO2 need from baseline) [ ]2) Has not improved sufficiently with emergency department or observation care IV diuretics or other heart failure treatments[E] [ ]v) Altered mental status that is severe or persistent [ ]vi) Increased creatinine (new on laboratory test) with reduction of more than 50% in estimated glomerular filtration rate from baseline [ ]vii) Progressively (ongoing) rising creatinine (known from past laboratory test) with reduction of more than 25% in estimated glomerular filtration rate from baseline [ ]viii) Acute renal failure [ ]ix) Acute peripheral ischemia (eg, examination shows pulseless, cool, mottled, or cyanotic extremity) [ ]x) Pulmonary artery catheter monitoring needed [ ]xi) Other sign or symptom of heart failure requiring inpatient treatment (ie, too severe or not responsive to outpatient and observation care treatment) [ ]c) Infection requiring inpatient management (eg, Hemodynamic instability, need for intravenous antimicrobial treatment)(66)(67)(68)(69)(70) [ ]d) Cardiac allograft vasculopathy requiring inpatient management ( eg evidence of cardiac ischemia)(71) [ ]e) Other complication of transplanted heart (eg, stroke, severe pulmonary hypertension, severe valvular dysfunction) requiring inpatient management(72) The original [facility] content created by [facility] has been revised. The portions of the content which have been revised are identified through the use of italic text or in bold, and [facility] has neither reviewed nor approved the modified material. All other unmodified content is copyright [facility]. Please see references footnoted in the original [facility] edition 2016 Admission Criteria Met?: Yes GILDA WAGGONER Jul 27, 2016 12:34
== END 2016-07-26 14:00 | disposition home or self-care (01) | DRG 392 ==
LOC: ER 10:57 → 5 NORTH 12:25 → 2 NORTH 19:31
PROVIDERS: ADMIT Family Medicine; ATTEND Family Medicine
DX: K44.9 Diaphragmatic hernia without obstruction or gangrene (principal); I42.9 Cardiomyopathy, unspecified; D61.818 Other pancytopenia; K21.9 Gastro-esophageal reflux disease without esophagitis; G47.33 Obstructive sleep apnea (adult) (pediatric); I11.0 Hypertensive heart disease with heart failure; I50.9 Heart failure, unspecified; I25.10 Atherosclerotic heart disease of native coronary artery without angina pectoris; F10.10 Alcohol abuse, uncomplicated; F17.210 Nicotine dependence, cigarettes, uncomplicated; M54.9 Dorsalgia, unspecified; G62.9 Polyneuropathy, unspecified; G89.29 Other chronic pain; Z80.9 Family history of malignant neoplasm, unspecified; Z82.49 Family history of ischemic heart disease and other diseases of the circulatory system; Z82.5 Family history of asthma and other chronic lower respiratory diseases; Z88.5 Allergy status to narcotic agent
CPT/HCPCS: 36415; 71010; 80048; 80076; 82553; 83735; 83880; 84484; 85027; 85520; 85610; 93005; 93306; 94250; 94760; 99285-25

== ENCOUNTER → 2016-09-02 | Outpatient (CLI) | payer BC, MEDICARE ==
[~2016-09-02] MED LIST changes: +ALBU8.5H5 INH; +AMLO10TA2 PO; +CHLO10CA5 PO; +FENT1PAT15 TD; +METO50TA10 PO
--- NOTE | 2016-09-02 10:39 | KCIC ---
PROCEDURE MRI lumbar spine without contrast. HISTORY Lumbar spinal stenosis, chronic bilateral lower extremity neuropathy and numbness TECHNIQUE Multiplanar, multi sequential non contrast MR imaging was performed of the lumbar spine. COMPARISON None available FINDINGS Lumbar vertebral body stature and AP alignment are adequate. There is advanced degenerative disc disease at L4-5, degenerative endplate change at this level. There is mild degenerative disc disease at L5-S1. Conus terminates at T12-L1. Trace L4-5 endplate edema is likely reactive/degenerative in etiology. There is a small likely hemangioma of the L2 vertebral body. L1-L2: There is minimal bulge greater in the right lateral recess. Spinal canal and the neural foramina are adequate. L2-3: Neural foramina and spinal canal are adequate. There is minimal facet degenerative change. L3-L4: There is small hemangioma of the posterior left L3 vertebral body. Neural foramina and spinal canal are adequate. L4-5: There is negligible posterior bulge. There is posterior annular tear. There is mild narrowing of the right neural foramen, left neural foramen adequate. Spinal canal is adequate. L5-S1: There is negligible posterior bulge. Spinal canal is adequate. There is mild facet degenerative change greater on the right. There is mild to moderate, left greater than right neural foramina compromise. IMPRESSION 1. There is advanced degenerative disc disease at L4-5, minimally at L5-S1. There is mild spondylosis. 2. There is no significant lumbar spinal stenosis. 3. There is mild to moderate L5-S1 neural foramina compromise bilaterally, lesser degree of narrowing on the right at L4-5. Electronically signed by: Dami Ley MD (September 02, 2016 10:38:03)
--- NOTE | 2016-09-02 11:11 | KCIC ---
PROCEDURE MRI cervical spine without contrast. HISTORY Spinal stenosis, numbness in body in extremities from shoulders down TECHNIQUE Multiplanar, multi sequential non contrast MR imaging was performed of the cervical spine. COMPARISON None FINDINGS There is some motion degradation. There is advanced degenerative disc disease C5-C6 and to a lesser degree at C6-7. There is degenerative endplate change C5-C6 and to a lesser degree superiorly of C7 and T1. There is mild superior height loss of C7. Trace superior C7 endplate edema is likely reactive/degenerative in etiology. Cervical cord caliber is within normal limits without convincing focal signal abnormality allowing for motion artifact. There is negligible posterior subluxation C6 relative to C7. C2-3: Spinal canal and the neural foramina are adequate. C3-4: Neural foramina and spinal canal are adequate. C4-5: Spinal canal and the neural foramina are adequate. C5-6: There is minimal disc osteophyte complex. There is indentation upon the ventral thecal sac greater in the right lateral recess. There is very mild narrowing of the far right lateral recess. There is mild right uncovertebral degenerative change. There is likely mild to moderate narrowing of the right neural foramen, left neural foramen adequate. C6-7: There is minimal disc osteophyte complex and bulge, mild indentation on the ventral thecal sac greater right lateral recess. Central canal is minimally narrowed to 9 millimeters also with mild right lateral recess stenosis. There is mild right uncovertebral degenerative change. There is likely mild neural foramina compromise greater on the right. C7-T1: Spinal canal and the neural foramina are adequate. IMPRESSION 1. There is mild spinal stenosis C6-7, mild narrowing of the far right lateral recess C5-C6. 2. There is advanced degenerative disc disease C5-C6, to a lesser degree at C6-7. There is spondylosis at the same levels. 3. There is likely mild to moderate narrowing of the right C5-C6 neural foramen, minimal narrowing at C6-7. Electronically signed by: Dami Ley MD (September 02, 2016 11:09:55)
--- NOTE | 2016-09-02 12:02 | KCIC ---
PROCEDURE MRI thoracic spine without contrast. HISTORY Spinal stenosis, numbness and body in extremities from the shoulders down TECHNIQUE Multiplanar, multi sequential non contrast MR imaging was performed of the thoracic spine. COMPARISON None FINDINGS Thoracic vertebral body stature and AP alignment are adequate. Thoracic cord caliber is within normal limits, no convincing focal signal abnormality allowing for some motion artifact. There is large hemangioma of the right T11 vertebral body, small foci of T7, T5, and T3. There is no significant thoracic spinal stenosis or neural foramina compromise at any level of the thoracic spine. Trace edema of the anterior, inferior corners of T8, T9, T10 is likely reactive/degenerative in etiology. Intervertebral disc spaces are relatively maintained, mild disc desiccation of mid to inferior thoracic levels. IMPRESSION There is no significant thoracic spinal stenosis or neural foramina compromise. Electronically signed by: Dami Ley MD (September 02, 2016 12:00:16)
== END | disposition home or self-care (01) ==
LOC: KCIC MRI 09:00
PROVIDERS: ATTEND Family Medicine
DX: M48.05 Spinal stenosis, thoracolumbar region (principal)
CPT/HCPCS: 72141; 72146; 72148

== ENCOUNTER → 2016-09-23 | Outpatient (CLI) | payer BC, MEDICARE ==
--- NOTE | 2016-09-24 14:28 | SLEEP ---
DATE OF STUDY: 09/23/2016 ATTENDING PHYSICIAN: Dr. Daniel Crawford. REFERRING PHYSICIAN: Dr. Daniel Crawford. The patient is a 55-year-old who weighs 142 pounds with a BMI of 27.7. The patient's Bigler score was 3. Home sleep study was performed by [facility]. The total recording time was 324 minutes. During the night study, the patient had no central or mixed apneas. There were 37 obstructive apneas. The patient had 2 hypopneas. The patient's apnea-hypopnea index was 7 per hour with a supine index of 6.7 per hour. Review of nocturnal oximetry study revealed that patient spent 314 minutes with oxygen saturation of less than 90%. The patient's lowest saturation was 79% with an average of 86%. Mean heart rate was 69 beats per minute. IMPRESSION: 1. Mild sleep apnea-hypopnea syndrome with an apnea-hypopnea index of 7 per hour. 2. Moderate to severe nocturnal hypoxia secondary to obstructive sleep apnea. RECOMMENDATIONS: 1. If the patient is clinically symptomatic, then he would benefit from treatment of his sleep apnea either with a trial of oral appliance as recommended by the dentist or CPAP titration study. 2. If the patient undergoes CPAP titration, then the patient should follow up in 4-6 weeks to assess compliance with CPAP and to document clinical improvement. 3. The patient should also have further evaluation of nocturnal hypoxia to rule out any cardiac or pulmonary etiologies. 4. Avoid [employer] depressants. 5. Caution regarding driving until the patient's symptoms of sleep apnea resolve with the above recommendations. DANIEL CRAWFORD MD DR: VIOLETA/ruthy JOB#: [id number] / [id number] [place]
== END | disposition home or self-care (01) ==
LOC: RT 08:48
PROVIDERS: ATTEND Internal Medicine Critical Care Medicine
DX: G47.30 Sleep apnea, unspecified (principal)
CPT/HCPCS: G0399

== ENCOUNTER → 2017-06-21 | Outpatient (CLI) | payer BC, MEDICARE ==
[2017-06-21 09:59] LABS: PARTIAL THROMBOPLASTIN TIME 25 SEC (24-38); PROTHROMBIN TIME PATIENT 12.2 SEC (11.7-14.0)
[2017-06-22 10:23] LABS: HCV ANTIBODY <0.1 s/co ratio (0.0-0.9); HEP A IGM ABDY Negative (Negative); HEP B SURFACE AG Negative (Negative)
[2017-06-30 12:41] LABS: HEP A IGM ABDY Negative (Negative)
== END | disposition home or self-care (01) ==
LOC: LAB 09:18
DX: Z01.818 Encounter for other preprocedural examination (principal); D69.6 Thrombocytopenia, unspecified
CPT/HCPCS: 36415; 80074; 85610; 85730

== ENCOUNTER 2018-12-24 09:11 | Emergency (ER) | payer BC, MEDICARE ==
[~2018-12-24] VITALS: Ht 177.8 cm; Wt 68.0 kg
[~2018-12-24 09:11] MED LIST changes: +ALBU2.5V8 IH; +ALBU2.5V8 INH; -ALBU8.5H5 INH; -AMLO10TA2 PO; +AMLO10TA8 PO; +AMLO5TAB10 PO; -AMLO5TAB2 PO; -ERGO500012 PO; +ERGO500027 PO; -METO50TA10 PO; -METO50TA2 PO; +METO50TA29 PO; +METO50TA6 PO; -PROVENTIL HFA6.7 GM IH
[2018-12-24 10:23] VITALS: BP 137/85
--- NOTE | 2018-12-24 10:25 | PHYS DOC ---
Past Medical History Past Medical History: GERD, Heart Disease, Hypertension, Other Additional Past Medical Histor: ALCOHOLISM Past Surgical History: Other Additional Past Surgical Histo: knee sx, urological sx Alcohol Use: Heavy Drug Use: None Adult General Chief Complaint Chief Complaint: ANKLE PROBLEM [facility] Patient is a 58 year old male who presents with complaining of right foot ulcer. Patient states he had left then right foot without known injury weeks ago that getting better right now but has some his putting his right leg and his is concern for problem. She states he abusing alcohol. Patient denies any fall and injury. Patient had chronic neuropathy diabetes mellitus and denies pain, fever and chills, nausea and vomiting, focal neuro deficit. Review of Systems Review of Systems Constitutional: Denies fever or chills [] Eyes: Denies change in visual acuity, redness, or eye pain [] HENT: Denies nasal congestion or sore throat [] Respiratory: Denies cough or shortness of breath [] Cardiovascular: No additional information not addressed in HPI [] GI: Denies abdominal pain, nausea, vomiting, bloody stools or diarrhea [] : Denies dysuria or hematuria [] Musculoskeletal: Denies back pain or joint pain [] Integument: Denies rash, reports skin lesions [] Neurologic: Denies headache, focal weakness or sensory changes [] Endocrine: Denies polyuria or polydipsia [] All other systems were reviewed and found to be within normal limits, except as documented in this note. Allergies Allergies Allergies Coded Allergies Type Severity Reaction Last Updated Verified codeine Adverse Reaction Mild Nausea and Vomiting 06/28/14 Yes Physical Exam Physical Exam Constitutional: Well developed, well nourished, no distress, non-toxic appearance. [] HENT: Normocephalic, atraumatic. Eyes: PERRLA, EOMI, conjunctiva normal, no discharge. [] Neck: Normal range of motion, no tenderness, supple, no stridor. [] Cardiovascular:Heart rate regular rhythm, no murmur [] Lungs & Thorax: Bilateral breath sounds clear to auscultation [] Skin: Warm, dry, healed wound of dorsal side of right foot sign of infection Back: No tenderness, no CVA tenderness. [] Extremities: No tenderness, no cyanosis, no clubbing, ROM intact, no edema. [] Neurologic: Alert and oriented X 3, no focal deficits noted. [] Psychologic: Affect normal, judgement normal, mood normal. [] Current Patient Data Vital Signs Vital Signs Date Time Temp Pulse Resp B/P (MAP) Pulse Ox O2 Delivery O2 Flow Rate FiO2 12/24/18 10:23 81 14 137/85 (102) 96 Room Air 12/24/18 09:21 98.3 98.3 EKG EKG [] Radiology/Procedures Radiology/Procedures [] Course & Med Decision Making Course & Med Decision Making Dilution of patient in ER showed 58-year-old wound of the right foot without known injury. Patient did not want to have evaluation in ER and having tetanus immunization and wanted to follow up with his primary care physician. Dragon Disclaimer Dragon Disclaimer This electronic medical record was generated, in whole or in part, using a voice recognition dictation system. Departure Departure Impression: Primary Impression: Wound of right foot Disposition: HOME, SELF-CARE (at 1025) Condition: STABLE Referrals: KIERSTEN MITCHELL MD (PCP) Patient Instructions: Wound Care, [id number] Additional Instructions: Apply Neosporin ointment on the affected area Follow-up with your primary care physician in 3-5 days Return to ER if not getting better ROCAEL GARY MD Dec 24, 2018 10:25
--- NOTE | 2018-12-24 10:27 | RAD ---
FOOT RIGHT 3V History: Open sore, injury, infection.. No evidence of acute fracture. No aggressive bone destruction. Joint spaces and alignment appear intact. No definite soft tissue abnormality. IMPRESSION: No evidence of acute radiographic abnormality. Electronically signed by: Dylan Rangel MD (12/24/2018 10:24 AM) [facility]
== END 2018-12-24 10:35 | disposition home or self-care (01) ==
LOC: ER 09:11
DX: E11.621 Type 2 diabetes mellitus with foot ulcer (principal); L97.519 Non-pressure chronic ulcer of other part of right foot with unspecified severity; I11.9 Hypertensive heart disease without heart failure; E11.40 Type 2 diabetes mellitus with diabetic neuropathy, unspecified; K21.9 Gastro-esophageal reflux disease without esophagitis; F10.20 Alcohol dependence, uncomplicated; Y90.9 Presence of alcohol in blood, level not specified; Z88.5 Allergy status to narcotic agent
CPT/HCPCS: 73630; 99284

== ENCOUNTER 2020-10-30 20:06 | Inpatient (IN) | payer BC, MEDICARE ==
[~2020-10-30] VITALS: Ht 177.8 cm; Wt 68.9 kg
[~2020-10-30 20:06] MED LIST changes: -ALBU2.5V8 IH; +AMLO-186 PO; +AMLO-187 PO; -AMLO10TA8 PO; -AMLO5TAB10 PO; +LISI10TA16 PO; -LISI10TA2 PO; +PROVENTIL HFA6.7 GM IH
--- NOTE | 2020-10-30 21:19 | RAD ---
Exam: Right ankle 3 views INDICATION: Deformity TECHNIQUE: Frontal, lateral and oblique views of the right ankle Comparisons: None FINDINGS: Fracture at the distal fibular diaphysis into the medial malleolus. There is dissociation at the tibi otalar joint. Soft tissue swelling surrounding the ankle. Bone mineralization is normal. IMPRESSION: Comminuted trimalleolar fracture with dislocation of the tibiotalar joint Electronically signed by: Marissa Valdovinos MD (10/30/2020 9:16 PM) [facility]
--- NOTE | 2020-10-30 21:41 | ED.ADGEN ---
Past Medical History Past Medical History: GERD, Heart Disease, Hypertension, Other Additional Past Medical Histor: ALCOHOLISM Past Surgical History: Other Additional Past Surgical Histo: knee sx, urological sx, spinal stimulator Smoking Status: Current Every Day Smoker Alcohol Use: Heavy Drug Use: None General Adult EDM: Chief Complaint: LOWEREXTREMITY INJURY HPI: HPI: Patient is a 60-year-old male who presents to the emergency room with a right ankle injury. Patient states that he was in the bathroom and was getting off the toilet when his foot slipped and went sideways. Patient states he has neuropathy and is unable to feel anything below his knee at baseline. He denies any pain but states that he was unable to walk or move after this. He denies any other injuries. Denies hitting his head or losing consciousness. Review of Systems: Review of Systems: Complete ROS is negative unless otherwise documented in HPI Current Medications: Current Medications Medications (Trade) Dose Ordered Sig/Maryann Start Time Stop Time Status Last Admin Dose Admin Propofol (Diprivan) 200 mg 1X ONCE 10/30/20 21:45 10/30/20 21:46 DC 10/30/20 22:46 200 MG Allergies: Allergies: Allergies Coded Allergies Type Severity Reaction Last Updated Verified codeine Adverse Reaction Mild Nausea and Vomiting 06/28/14 Yes Physical Exam: PE: General: Awake, alert, NAD. Well Nourished, well hydrated. Cooperative HEENT: Atraumatic, EOMI, PERRL, airway patent, moist oral mucosa Neck: Supple, trachea midline Respiratory: CTA bilaterally, normal effort, no wheezing/crackles CV: RRR, no murmur, cap refill <2 GI: Soft, nondistended, nontender, no masses MSK: Right ankle: Obvious deformity with skin tenting to the medial ankle, small abrasion to the anterior ankle, 2+ DP/TP pulses, less than 2-second capillary refill on all 5 distal toes, intact range of motion of the toes Skin: Warm, dry, intact Neuro: A&O x3, speech NL, intact motor in bilateral toes and bilateral upper extremities, no sensation in bilateral lower extremities below knee, no focal deficits Psych: Normal affect, normal mood, not suicidal or homicidal Current Patient Data: Labs: Laboratory Tests Test 10/30/20 22:13 White Blood Count 5.5 x10^3/uL (4.0-11.0) Red Blood Count 3.56 x10^6/uL (4.30-5.70) L Hemoglobin 13.6 g/dL (13.0-17.5) Hematocrit 39.7 % (39.0-53.0) Mean Corpuscular Volume 111 fL (79-100) H Mean Corpuscular Hemoglobin 38 pg (25-35) H Mean Corpuscular Hemoglobin Concent 34 g/dL (31-37) Red Cell Distribution Width 15.3 % (11.5-14.5) H Platelet Count 116 x10^3/uL (140-400) L Neutrophils (%) (Auto) 63 % (31-73) Lymphocytes (%) (Auto) 28 % (24-48) Monocytes (%) (Auto) 7 % (0-9) Eosinophils (%) (Auto) 1 % (0-3) Basophils (%) (Auto) 1 % (0-3) Neutrophils # (Auto) 3.5 x10^3/uL (1.8-7.7) Lymphocytes # (Auto) 1.5 x10^3/uL (1.0-4.8) Monocytes # (Auto) 0.4 x10^3/uL (0.0-1.1) Eosinophils # (Auto) 0.1 x10^3/uL (0.0-0.7) Basophils # (Auto) 0.0 x10^3/uL (0.0-0.2) Platelet Estimate Decreased (ADEQUATE) Macrocytosis Mod Sodium Level 138 mmol/L (136-145) Potassium Level 3.9 mmol/L (3.5-5.1) Chloride Level 97 mmol/L (98-107) L Carbon Dioxide Level 28 mmol/L (21-32) Anion Gap 13 (6-14) Blood Urea Nitrogen 7 mg/dL (8-26) L Creatinine 0.7 mg/dL (0.7-1.3) Estimated GFR (Cockcroft-Gault) 114.6 Glucose Level 95 mg/dL (70-99) Calcium Level 8.3 mg/dL (8.5-10.1) L Laboratory Tests 10/30/20 22:13 Laboratory Tests 10/30/20 22:13 Vital Signs: Vital Signs Date Time Temp Pulse Resp B/P (MAP) Pulse Ox O2 Delivery O2 Flow Rate FiO2 10/30/20 20:12 98.5 94 17 120/73 (102) 95 Room Air 98.5 EKG: EKG: [] Heart Score: C/O Chest Pain: N/A Risk Factors: Risk Factors: DM, Current or recent (<one month) smoker, HTN, HLP, family history of CAD, obesity. Risk Scores: Score 0 - 3: 2.5% MACE over next 6 weeks - Discharge Home Score 4 - 6: 20.3% MACE over next 6 weeks - Admit for Clinical Observation Score 7 - 10: 72.7% MACE over next 6 weeks - Early Invasive Strategies Radiology/Procedures: Radiology/Procedures: [] Course & Med Decision Making: Course & Med Decision Making Pertinent Labs and Imaging studies reviewed. (See chart for details) Patient 60-year-old male who presents to the emergency room with an obvious right ankle fracture. X-ray shows a trimalleolus fracture with dislocation. At this time the fracture is not open but patient does have significant skin tenting. I discussed the case with the on-call orthopedic surgeon. He recommends that we reduce the fracture at this time and place the patient in a splint. Patient will need surgical fixation tomorrow. Rapid Covid swab was done. Fracture was reduced and splinted. Patient will be admitted. Dragon Disclaimer: Dragon Disclaimer: This electronic medical record was generated, in whole or in part, using a voice recognition dictation system. PROCEDURE Procedure Fracture Reduction Performed by: Freddy Guadalupe MD Consent: Verbal consent obtained. Risks, benefits, and alternatives were discussed Time out was called immediately prior to start of procedure Moderate Sedation Medication: Propofol Sedation Time: 10 minutes Patient on cardiac, respiratory, and CO2 monitor through procedure. Tolerated sedation well Pre-procedure: Pulses intact, distal range of motion intact, patient has neuropathy at baseline Location: Right ankle Technique: Slow traction Results: Reduction Complication: None Tolerated procedure well, capillary refill normal, full ROM in toes Post procedure: Pulses intact, distal range of motion intact, patient has neuropathy at baseline Departure Departure Impression: Primary Impression: Displaced trimalleolar fracture Disposition: ADMITTED INPATIENT Condition: STABLE Referrals: KIERSTEN MITCHELL MD (PCP) FREDDY GUADALUPE MD Oct 30, 2020 21:41
[2020-10-30] MEDS ORDERED: PROPOFOL 10 MG/ML (20ML) VIAL. IV ONE (21:45)
[2020-10-30 23:31] LABS: BASO % 1 % (0-3); EOS # 0.1 x10^3/uL (0.0-0.7); EOS % 1 % (0-3); HEMATOCRIT 39.7 % (39.0-53.0); HEMOGLOBIN 13.6 g/dL (13.0-17.5); LYMPH # 1.5 x10^3/uL (1.0-4.8); LYMPH % 28 % (24-48); MEAN CORPUSCULAR HEMOGLOBIN 38 pg (25-35); MEAN CORPUSCULAR HGB CONC 34 g/dL (31-37); MEAN CORPUSCULAR VOLUME 111 fL (79-100); MONO # 0.4 x10^3/uL (0.0-1.1); MONO % 7 % (0-9); NEUT # 3.5 x10^3/uL (1.8-7.7); NEUT % 63 % (31-73); PLATELET COUNT 116 x10^3/uL (140-400); RED BLOOD COUNT 3.56 x10^6/uL (4.30-5.70); RED CELL DISTRIBUTION WIDTH 15.3 % (11.5-14.5); WHITE BLOOD COUNT 5.5 x10^3/uL (4.0-11.0)
[2020-10-30 23:37] LABS: CALCIUM 8.3 mg/dL (8.5-10.1); CREATININE 0.7 mg/dL (0.7-1.3); GFR 114.6; POTASSIUM 3.9 mmol/L (3.5-5.1)
--- NOTE | 2020-10-30 23:47 | RAD ---
Exam: Right ankle 2 views INDICATION: Post reduction TECHNIQUE: Frontal and lateral views of the right ankle Comparisons: None FINDINGS: Improved alignment at the trimalleolar fracture. Diffuse osteopenia. Joint spaces are well-maintained . Soft tissue swelling surrounding the ankle. IMPRESSION: Improved alignment at the bimalleolar right ankle fracture. Electronically signed by: Marissa Valdovinos MD (10/30/2020 11:44 PM) [facility]
[2020-10-31] VITALS (8 sets, daily range): BP systolic 97–121; BP diastolic 63–85
[2020-10-31] MEDS ORDERED: MORPHINE SULFATE 10 MG/ML VIAL. IV ONE ×2 (00:45→05:30)
[2020-10-31] MEDS ORDERED: LISI10TA16 PO (02:22)
[2020-10-31] MEDS ORDERED: AMLO-187 PO (02:22)
[2020-10-31 04:55] LABS: PLT ESTIMATE DECREASED (ADEQUATE)
[2020-10-31] MEDS ORDERED: TAMS0.4C97 PO (06:00)
[2020-10-31] MEDS ORDERED: VITA25006 PO (06:01)
--- NOTE | 2020-10-31 06:51 | PDOC1 ---
History and Physical Date of Admission Date of Admission DATE: 10/31/20 TIME: 06:35 Identification/Chief Complaint Chief Complaint Right ankle injury Source Source: Chart review, Patient History of Present Illness History of Present Illness This is a 60-year-old male with past medical history neuropathy, alcohol abuse, presents to the ED with complaints of right ankle injury that occurred yesterday. Patient states she was in the bathroom getting off the toilet when he slipped, injuring his right ankle. Patient has a history of neuropathy unremarkable pain at baseline, but he was unable to bear weight on his right an kle or ambulate. Denies head injury or loss consciousness. Labs in the ED showed WBC 5.5, hemoglobin 13.6, hematocrit 39.7, platelets 116. X-ray right ankle showed a trimalleolus fracture with dislocation. Right ankle was reduced in the ED and patient was placed in a splint. Orthopedic surgery was contacted and anticipate surgical fixation tomorrow. Will admit for further medical m anagement. Past Medical History Cardiovascular: CHF, HTN, Other CENTRAL NERVOUS SYSTEM: Periperal neuropathy GI: GERD Musculoskeletal: Other Past Surgical History Past Surgical History Spinal stimulator implant, ureter stricture surgery, knee surgery Family History Family History: Heart Disease, Hypertension Social History Smoke: <1 pack per day ALCOHOL: heavy Drugs: None Current Problem List Problem List Problems Medical Problems: (1) Displaced trimalleolar fracture Status: Acute Current Medications Current Medications Current Medications Propofol (Diprivan) 200 mg 1X ONCE IV Last administered on 10/30/20at 22:46; Start 10/30/20 at 21:45; Stop 10/30/20 at 21:46; Status DC Morphine Sulfate (Morphine Sulfate) 5 mg 1X ONCE IV Last administered on 10/31/20at 01:27; Start 10/31/20 at 00:45; Stop 10/31/20 at 00:46; Status DC Morphine Sulfate (Morphine Sulfate) 5 mg 1X ONCE IV Last administered on 10/31/20at 05:29; Start 10/31/20 at 05:30; Stop 10/31/20 at 05:31; Status DC Active Scripts Active Amlodipine Besylate 10 Mg Tablet 10 Mg PO DAILY Metoprolol Succinate 50 Mg Tab.er.24h 0.5 Tab PO DAILY Spiriva (Tiotropium [place]) 18 Mcg Cap.w.dev 1 Cap IH DAILY Lisinopril 10 Mg Tablet 20 Tab PO BID Reported Noxifol-D3 2,500 Unit-1 mg Tab (Vitamin D3/Folic Acid) 2,500 Unit Tablet 4,000 Unit PO DAILY Flomax (Tamsulosin Hcl) 0.4 Mg Cap.er.24h 1 Cap PO DAILY Lisinopril 10 Mg Tablet 1 Tab PO DAILY Amlodipine Besylate 10 Mg Tablet 10 Mg PO DAILY Proair Hfa (Albuterol Sulfate) 8.5 Gm Hfa.aer.ad 1-2 Puff INH PRN Q4-6HRS PRN FENTANYL 25mcg/hr (Fentanyl) 1 Each Patch.td72 25 Mcg TD Q3DAYS Chlordiazepoxide Hcl 10 Mg Capsule 10 Mg PO PRN TID PRN Lansoprazole 30 Mg Capsule.dr 1 Cap PO DAILY Allergies Allergies: Coded Allergies: codeine (Verified Adverse Reaction, Mild, Nausea and Vomiting, 06/28/14) ROS Review of System GENERAL: No history of weight change, weakness or fevers. SKIN: No bruising, hair changes or rashes. EYES: No blurred, double or loss of vision. NOSE AND THROAT: No history of nosebleeds, hoarseness or sore throat. HEART: Denies chest pain, denies palpitations. LUNGS: Denies cough, hemoptysis, wheezing or shortness of breath. GASTROINTESTINAL: Denies nausea, vomiting, abdominal pain. GENITOURINARY: Denies dysuria, frequency, urgency, hematuria. NEUROLOGIC: Denies history of numbness, tingling, tremor or weakness. PSYCHIATRIC: Denies anxiety, denies depression. ENDOCRINE: No history of heat or cold intolerance, polyuria or polydipsia. EXTREMITIES: Right ankle weakness difficulty walking. Denies pain on walking or stiffness. Physical Exam Physical Exam General: Alert, Oriented X3, Cooperative, No acute distress HEENT: PERRLA, EOMI Lungs: Clear to auscultation, Normal air movement Heart: RRR, no murmurs Cardiovascular: S1, S2 Abdomen: Normal bowel sounds, Soft, No tenderness Extremities: Right ankle splinted, pulses intact. No clubbing, No cyanosis Skin: No rashes, No significant lesion Neuro: Normal speech, Normal tone, Sensation intact Psych/Mental Status: Mental status NL, Mood NL Vitals Vitals Vital Signs Date Time Temp Pulse Resp B/P (MAP) Pulse Ox O2 Delivery O2 Flow Rate FiO2 7/8/21 05:59 93 10/31/20 03:33 98.1 83 16 97/63 (74) Room Air 98.1 Labs Labs Laboratory Tests Test 10/30/20 22:13 10/31/20 00:50 White Blood Count 5.5 x10^3/uL (4.0-11.0) Red Blood Count 3.56 x10^6/uL (4.30-5.70) Hemoglobin 13.6 g/dL (13.0-17.5) Hematocrit 39.7 % (39.0-53.0) Mean Corpuscular Volume 111 fL (79-100) Mean Corpuscular Hemoglobin 38 pg (25-35) Mean Corpuscular Hemoglobin Concent 34 g/dL (31-37) Red Cell Distribution Width 15.3 % (11.5-14.5) Platelet Count 116 x10^3/uL (140-400) Neutrophils (%) (Auto) 63 % (31-73) Lymphocytes (%) (Auto) 28 % (24-48) Monocytes (%) (Auto) 7 % (0-9) Eosinophils (%) (Auto) 1 % (0-3) Basophils (%) (Auto) 1 % (0-3) Neutrophils # (Auto) 3.5 x10^3/uL (1.8-7.7) Lymphocytes # (Auto) 1.5 x10^3/uL (1.0-4.8) Monocytes # (Auto) 0.4 x10^3/uL (0.0-1.1) Eosinophils # (Auto) 0.1 x10^3/uL (0.0-0.7) Basophils # (Auto) 0.0 x10^3/uL (0.0-0.2) Platelet Estimate Decreased (ADEQUATE) Macrocytosis Mod Sodium Level 138 mmol/L (136-145) Potassium Level 3.9 mmol/L (3.5-5.1) Chloride Level 97 mmol/L (98-107) Carbon Dioxide Level 28 mmol/L (21-32) Anion Gap 13 (6-14) Blood Urea Nitrogen 7 mg/dL (8-26) Creatinine 0.7 mg/dL (0.7-1.3) Estimated GFR (Cockcroft-Gault) 114.6 Glucose Level 95 mg/dL (70-99) Calcium Level 8.3 mg/dL (8.5-10.1) SARS-CoV-2 Antigen (Rapid) Negative (NEGATIVE) Laboratory Tests Test 10/30/20 22:13 10/31/20 00:50 White Blood Count 5.5 x10^3/uL (4.0-11.0) Red Blood Count 3.56 x10^6/uL (4.30-5.70) Hemoglobin 13.6 g/dL (13.0-17.5) Hematocrit 39.7 % (39.0-53.0) Mean Corpuscular Volume 111 fL (79-100) Mean Corpuscular Hemoglobin 38 pg (25-35) Mean Corpuscular Hemoglobin Concent 34 g/dL (31-37) Red Cell Distribution Width 15.3 % (11.5-14.5) Platelet Count 116 x10^3/uL (140-400) Neutrophils (%) (Auto) 63 % (31-73) Lymphocytes (%) (Auto) 28 % (24-48) Monocytes (%) (Auto) 7 % (0-9) Eosinophils (%) (Auto) 1 % (0-3) Basophils (%) (Auto) 1 % (0-3) Neutrophils # (Auto) 3.5 x10^3/uL (1.8-7.7) Lymphocytes # (Auto) 1.5 x10^3/uL (1.0-4.8) Monocytes # (Auto) 0.4 x10^3/uL (0.0-1.1) Eosinophils # (Auto) 0.1 x10^3/uL (0.0-0.7) Basophils # (Auto) 0.0 x10^3/uL (0.0-0.2) Platelet Estimate Decreased (ADEQUATE) Macrocytosis Mod Sodium Level 138 mmol/L (136-145) Potassium Level 3.9 mmol/L (3.5-5.1) Chloride Level 97 mmol/L (98-107) Carbon Dioxide Level 28 mmol/L (21-32) Anion Gap 13 (6-14) Blood Urea Nitrogen 7 mg/dL (8-26) Creatinine 0.7 mg/dL (0.7-1.3) Estimated GFR (Cockcroft-Gault) 114.6 Glucose Level 95 mg/dL (70-99) Calcium Level 8.3 mg/dL (8.5-10.1) SARS-CoV-2 Antigen (Rapid) Negative (NEGATIVE) Images Images PATIENT: ASH CLARKE ACCOUNT: [id number] : 1960 LOCATION: ER AGE: 60 SEX: M EXAM STATUS: REG ER ORD. PHYSICIAN: FREDDY BUENO MD REASON: deformity PROCEDURE: ANKLE RIGHT 3V Exam: Right ankle 3 views INDICATION: Deformity TECHNIQUE: Frontal, lateral and oblique views of the right ankle Comparisons: None FINDINGS: Fracture at the distal fibular diaphysis into the medial malleolus. There is dissociation at the tibiotalar joint. Soft tissue swelling surrounding the ankle. Bone mineralization is normal. IMPRESSION: Comminuted trimalleolar fracture with dislocation of the tibiotalar joint PATIENT: ASH CLARKE ACCOUNT: [id number] : 1960 LOCATION: ER AGE: 60 SEX: M EXAM STATUS: REG ER ORD. PHYSICIAN: FREDDY BUENO MD REASON: post reduction PROCEDURE: ANKLE RIGHT 2V Exam: Right ankle 2 views INDICATION: Post reduction TECHNIQUE: Frontal and lateral views of the right ankle Comparisons: None FINDINGS: Improved alignment at the trimalleolar fracture. Diffuse osteopenia. Joint spaces are well-maintained. Soft tissue swelling surrounding the ankle. IMPRESSION: Improved alignment at the bimalleolar right ankle fracture. VTE Prophylaxis Ordered VTE Prophylaxis Devices: No VTE Pharmacological Prophylaxi: Yes Assessment/Plan Assessment/Plan Comminuted trimalleolar fracture with dislocation of the tibiotalar joint Neuropathy HTN CAD Alcohol abuse Plan: Right ankle reduced in ED; consultation placed to orthopedic surgery Anticipate surgery fixation tomorrow to allow the swelling to improve prior Provide pain management Resume home medications PT/OT FEN - Cardiac diet PPX - Heparin FULL CODE Dispo - inpatient for above Advance Care Planning: Total time spent [id number] with patient 16 minutes in discussion with goals of care, comfort care, end-of-life care, pain management, code status; patient names his (Carolynn Clarke) as surrogate decision-maker. Justifications for Admission Other Justification GILBERTO CORTES MD Oct 31, 2020 06:51
[2020-10-31] MEDS ORDERED: CALCIUM CARBONATE 500 MG TAB.CHEW PO PRN (08:30)
[2020-10-31] MEDS ORDERED: ZOLPIDEM 5 MG TABLET. PO PRN (08:30)
[2020-10-31] MEDS ORDERED: MAGNESIUM HYDROXIDE 2,400 MG/30 ML ORAL.SUSP. PO PRN (08:30)
[2020-10-31] MEDS ORDERED: BISACODYL 10 MG SUPP.RECT. PR PRN (08:30)
[2020-10-31] MEDS ORDERED: ACETAMINOPHEN 325 MG TABLET. PO PRN (08:30)
[2020-10-31] MEDS ORDERED: MAG HYDROX/ALUMINUM HYD/SIMETH 30 ML ORAL.SUSP PO PRN (08:30)
[2020-10-31] MEDS ORDERED: MORPHINE SULFATE 2 MG/ML INJ. IV PRN (08:30)
[2020-10-31] MEDS ORDERED: ONDANSETRON PF 4 MG/2 ML VIAL. IVP PRN (08:30)
[2020-10-31] MEDS ORDERED: HYDROcodone/APAP 5/325MG 1 TAB TABLET PO PRN (08:30)
[2020-10-31] MEDS ORDERED: NON FORMULARY ITEM (Tiotropium Bromide (Spiriva) 1 CAP) IH SCH (09:00)
[2020-10-31] MEDS: METOPROLOL SUCC 24HR ER 25 MG TAB.ER.24H. PO SCH (09:00)
[2020-10-31] MEDS ORDERED: METOPROLOL SUCC 24HR ER 50 MG TAB.ER.24H. PO SCH (09:00)
[2020-10-31] MEDS: LISINOPRIL 10 MG TABLET PO SCH (09:32)
[2020-10-31] MEDS: PANTOPRAZOLE 40 MG TABLET.DR. PO SCH (09:32)
[2020-10-31] MEDS: TAMSULOSIN 0.4 MG CAP.ER.24H. PO SCH (09:32)
[2020-10-31] MEDS: HYDROcodone/APAP 5/325MG 1 TAB TABLET PO PRN ×3 (09:34→20:14)
--- NOTE | 2020-10-31 10:22 | NUR ---
SW following. Discussed with RN, pt from home with family, room air, cardiac diet, COVID-19 negative. Pt to have surgery tomorrow, as there is too much swelling today. PT/OT ordered. SW will continue to follow.
[2020-10-31] MEDS ORDERED: IPRATRPIUM/ALBUTEROL 0.5/2.5MG 3 ML NEBU. NEB SCH (12:00)
[2020-10-31] MEDS ORDERED: ALBUTEROL SULFATE 2.5 MG/3 ML NEBU. NEB PRN (12:15)
[2020-10-31] MEDS: HEPARIN for SUB-Q USE 5,000 UNIT/ML VIAL. SQ SCH ×2 (14:06→21:15)
--- NOTE | 2020-10-31 21:45 | PDOC2 ---
Consult: October 31, 2020 at approximately 6:45 AM Patient seen and evaluated today in room 410. He is lying comfortably. He has a splint to his right lower extremity. He states he slipped and fell getting off the toilet injuring his right ankle. He does have neuropathy that is documented. He states his pain is minimal today. He denies any numbness or tingling. PAST MEDICAL/SURGICAL/FAMILY HISTORY/SOCIAL HISTORY/ AND ROS were reviewed on intake to include multiple system review. Copied to EHR. EXAM: -------- Well-nourished well-developed patient General: No acute distress. HEENT: Normocephalic. Respiratory: Respirations are non-labored. Cardiovascular: No edema. Abdomen: soft Neurologic: Alert. Psychiatric: Cooperative. Right lower extremity is well dressed. Motor is intact to the distal toes. Compartments are soft in the area of the calf. Capillary refill is less than 3 seconds. ASSESSMENT & PLAN: Right ankle trimalleolar fracture dislocation When contacted from the emergency department they were attempting reduction. I reviewed pre and post reduction x-rays and it reveals a significantly unstable ankle fracture pattern that was well reduced in the emergency department. We will plan on surgical treatment but will give him 24 hours for some swelling to start to subside since realignment was obtained. I discussed with the patient treatment options. We discussed options both surgical and nonsurgical (medication, injection, therapy, lifestyle modifi cation, assistive devices and other modalities). We also discussed pros and cons of each. Greater than 30 minutes was spent with the patient with more than 50 percent of the time in discussion with regards to treatment and medical decision-making. Risk, benefits, alternative treatments, if any, and possible complications of surgery were discussed in detail, including, but not limited to: infection, scar, blood loss, chronic pain, need for reoperation, injury to nerve, artery or vein, blood clots, implant failure if used in procedure, and possible morbidity and mortality. Discussion of anticipated outcome, the post- operative course, and the potential rehab needs. We will plan for open reduction internal fixation right trimalleolar ankle fracture on November 01, 2020 CHAKA GONSALEZ DO Oct 31, 2020 9:45 pm
[2020-11-01] VITALS (10 sets, daily range): BP systolic 111–137; BP diastolic 71–83
[2020-11-01] MEDS: HEPARIN for SUB-Q USE 5,000 UNIT/ML VIAL. SQ SCH ×3 (05:08→20:52)
[2020-11-01] MEDS ORDERED: PROCHLORPERAZINE 10 MG/2 ML VIAL. IVP PRN (06:00)
[2020-11-01] MEDS ORDERED: fentaNYL PF VIAL 100 MCG/2 ML VIAL IVP PRN ×3 (06:00→10:00)
[2020-11-01] MEDS ORDERED: HYDROmorphone 2 MG/ML INJ. IVP PRN (06:00)
[2020-11-01] MEDS ORDERED: MORPHINE SULFATE 2 MG/ML INJ. IVP PRN (06:00)
[2020-11-01] MEDS ORDERED: IV RINGERS,LACTATED 1000ML 1,000 ML IV SCH (06:00)
[2020-11-01] MEDS ORDERED: ceFAZolin SODIUM IV Push 1 GM VIAL. IVP ONE ×2 (06:00→07:00)
[2020-11-01] MEDS ORDERED: ONDANSETRON PF 4 MG/2 ML VIAL. ONE (06:47)
[2020-11-01] MEDS ORDERED: DEXAMETHASONE SOD PHOS 4 MG/ML VIAL ONE (06:47)
[2020-11-01] MEDS ORDERED: PROPOFOL 10 MG/ML (20ML) VIAL. IV ONE (06:47)
[2020-11-01] MEDS ORDERED: LIDOCAINE 2% PF 5 ML VIAL. ONE (06:47)
[2020-11-01] MEDS ORDERED: ROCURONIUM 50 MG/5 ML VIAL. ONE (06:50)
[2020-11-01] MEDS ORDERED: BUPIVACAINE-EPI 0.25%-1:200000 MPF 30 ML VIAL. ONE (07:10)
[2020-11-01] MEDS ORDERED: ROPIVacaine 0.5% PF 20 ML VIAL. ONE (07:12)
[2020-11-01] MEDS ORDERED: HYDROmorphone 2 MG/ML INJ. ONE (07:20)
[2020-11-01] MEDS: PANTOPRAZOLE 40 MG TABLET.DR. PO SCH (07:30)
[2020-11-01] MEDS: METOPROLOL SUCC 24HR ER 25 MG TAB.ER.24H. PO SCH (07:33)
[2020-11-01] MEDS ORDERED: ePHEDrine PF IN SALINE 50 MG/10 ML SYRINGE. IV ONE (07:58)
[2020-11-01] MEDS: LISINOPRIL 10 MG TABLET PO SCH (09:00)
[2020-11-01] MEDS: TAMSULOSIN 0.4 MG CAP.ER.24H. PO SCH (09:00)
[2020-11-01] MEDS ORDERED: SEVOFLURANE 61 TO 120 MINUTES. IH ONE (09:12)
--- NOTE | 2020-11-01 09:32 | PDOC4 ---
OPERATIVE NOTE: SURGERY DATE: November 01, 2020 PROCEDURE: Open reduction internal fixation left ankle bimalleolar trimalleolar fracture PREOPERATIVE DIAGNOSIS: Left ankle fracture, unstable POSTOPERATIVE DIAGNOSIS: Same SURGEON: Gallo Will D.O. DIE REPAIR MACHINIST: None ANESTHESIA: General EBL: <50cc SPECIMEN: None POSITION: Supine COMPLICATIONS: None IMPLANT SPECIFICATIONS: Arthrex ankle tray with single tight rope, one third tubular and 2 cannulated screws DESCRIPTION OF PROCEDURE: The patient was seen in the preoperative holding area, the site was marked, and consent was verified. Patient received preoperative antibiotics and was wheeled back to the operating room. The Department of Anesthesia administered anesthetic and maintained control of the airway. A tourniquet was placed proximal on the operative extremity. Time out was observed. Sterile prep and drape was performed of the operative extremity. Esmarch was used to exsanguinate the limb and tourniquet was inflated. At this point a 10 cm incision was made laterally over the distal fibula. Soft tissue dissection was carried out sharply down to the fascial layer. The fascia was split just anterior to the peroneal tendons and muscle. This allowed direct visualization of the lateral cortex at the fibula distally. The fracture was identified, and a direct reduction was performed with lobster claw clamps. The fracture was fixed using a one third tubular plate and multiple AO screws. These were bicortical proximal to the fracture and deep unicortical cancellous screws distal. The wound was copiously irrigated, and a moist sponge was placed. At this point dissection was carried out posterior to the peroneal tendons. The fascia was split to allow access down into the posterior lateral distal tibia. All soft tissue was retracted medialward. The peroneal tendons were retracted lateralward. At this point the fascia of the FHL was incised on the posterior lateral aspect of the tibia. The FHL muscle belly was reflected off the posterior tibia. This allowed direct access to the posterior malleolus fracture. It was directly reduced using a [place] elevator as well as dental pick. Once adequately reduced a one third tubular plate was placed over the area of the fracture. The fracture was initially compressed distally and then fixed proximally so that the plate acted as an anti-glide plate. We jonnie our attention to the medial aspect of the ankle. A 4 cm incision was made over the medial malleolus. Soft tissue dissection was carried out down to the medial malleolar bone. This area was copiously irrigated and suctioned dry. The fracture was identified and although fracture alignment was in good position. At this point malleolar screw was placed up the medial malleolus and into the distal tibia as a strut for fixation. Copious irrigation was run through the Wounds. Using fluoroscopy and external rotation view was obtained. The cotton test was performed revealing minimal syndesmotic widening. At this point the syndesmosis tight rope was placed. These were placed with syndesmotic compression with the foot in maximal dorsiflexion. Final x-rays using fluoroscopy were obtained. Cotton test and external rotation stress were performed and found to reveal no medial widening. Copious irrigation was run through the incision(s) and layered closure was performed. A large bulky dressing was applied. Anesthesia was reversed and the patient was transferred to postop in apparent stable condition. DISPOSITION: The patient will be discharged to home non-weight bearing and follow up in the clinic Prognosis: Fair. CHAKA WILL DO Nov 01, 2020 09:32
[2020-11-01] MEDS ORDERED: HYDR-2765 PO (09:35)
--- NOTE | 2020-11-01 09:48 | DISCH ---
DISCHARGE INSTRUCTIONS Condition on Discharge Condition on Discharge: Stable Activity After Discharge Activity Instructions for Disc: Activity as tolerated Lifting Instructions after Dis: No heavy lifting, No pulling or pushing, Do not lift >10 pounds Driving Instructions after Dis: Do not drive Weight Bearing Status after Di: Non weight bearing (left leg) Diet after Discharge Diet after Discharge: Cardiac Additional Diet Restrictions: No ETOH Diet Texture: Regular Liquid Texture: Thin Liquid Wound Incision Care Wound/Incision Care: Keep wound/cast CDI Checks after Discharge Checks after discharge: Check blood press - daily Contacting the DR. after DC Call your doctor for: If your condition worsens Treatment/Equipment after DC Adaptive Equipment Issued: CHAKA Zacarias DO Nov 01, 2020 09:48
--- NOTE | 2020-11-01 09:54 | NUR ---
SW following. Discussed with RN, pt having surgery today. RN advised no SW needs at this time. SW will continue to follow.
[2020-11-01] MEDS ORDERED: HYDROcodone/APAP 7.5/325MG 1 TAB TABLET PO PRN ×2 (10:00)
[2020-11-01] MEDS ORDERED: DEXTROSE 50% 25 GM / 50ML DISP.SYRIN. IV PRN (10:00)
[2020-11-01] MEDS ORDERED: ONDANSETRON PF 4 MG/2 ML VIAL. IVP PRN (10:00)
[2020-11-01] MEDS ORDERED: POLYETHYLENE GLYCOL 3350 17 GM PACKET. PO PRN (10:00)
--- NOTE | 2020-11-01 13:23 | PDOC ---
[facility] PROGRESS NOTE Date of Service DOS: DATE: 11/01/20 TIME: 13:20 Chief Complaint Chief Complaint Comminuted trimalleolar fracture with dislocation of the tibiotalar joint Neuropathy HTN CAD Alcohol abuse Plan: Right ankle reduced in ED; consultation placed to orthopedic surgery Anticipate surgery fixation tomorrow to allow the swelling to improve prior Provide pain management Resume home medications PT/OT FEN - Cardiac diet PPX - Heparin FULL CODE Dispo - inpatient for above Advance Care Planning: Total time spent [id number] with patient 16 minutes in discussion with goals of care, comfort care, end-of-life care, pain management, code status; patient names his (Carolynn Dowling) as surrogate decision-maker. History of Present Illness History of Present Illness This is a 60-year-old male with past medical history neuropathy, alcohol abuse, presents to the ED with complaints of right ankle injury that occurred yesterday. Patient states she was in the bathroom getting off the toilet when he slipped, injuring his right ankle. Patient has a history of neuropathy unremarkable pain at baseline, but he was unable to bear weight on his right ankle or ambulate. Denies head injury or loss consciousness. Labs in the ED showed WBC 5.5, hemoglobin 13.6, hematocrit 39.7, platelets 116. X-ray right ankle showed a trimalleolus fracture with dislocation. Right ankle was reduced in the ED and patient was placed in a splint. Orthopedic surgery was contacted and anticipate surgical fixation tomorrow. Will admit for further medical man agement. 11/01/2020: Patient s/p open reduction internal fixation left trimalleolar fracture. Denies any left lower extremity pain at this time. He will initiate physical therapy tomorrow. Provide pain management as needed. Vitals/I&O Vitals/I&O: Vital Signs Date Time Temp Pulse Resp B/P (MAP) Pulse Ox O2 Delivery O2 Flow Rate FiO2 11/01/20 11:30 84 117/78 (91) 94 Room Air 11/01/20 11:15 17 11/01/20 10:18 98.7 98.7 11/01/20 09:49 2.0 I & O 10/31/20 10/31/20 11/01/20 15:00 23:00 07:00 Intake Total 300 ml 240 ml Output Total 150 ml 250 ml Balance 150 ml -10 ml Physical Exam General: Alert, Oriented X3, Cooperative Heart: Regular rate Lungs: Clear Abdomen: Soft, No tenderness Extremities: Other (Left lower extremity wrapped in bandage with dressings clean/dry/intact) Skin: No rashes Assessment and Plan Assessmemt and Plan Problems Medical Problems: (1) Displaced trimalleolar fracture Status: Acute Comment Review of Relevant I have reviewed the following items yudy (where applicable) has been applied. Medications: Current Medications Medications (Trade) Dose Ordered Sig/Maryann Route PRN Reason Start Time Stop Time Status Last Admin Dose Admin Heparin Sodium (Porcine) (Heparin Sodium) 5,000 unit Q8HRS SQ 10/31/20 14:00 10/31/20 21:15 Ringer's Solution 1,000 ml @ 30 mls/hr Q24H IV 11/01/20 06:00 11/01/20 17:59 11/01/20 07:02 Bupivacaine HCl/ Epinephrine Bitart (Sensorcaine-Epi 0.25%-1:[id number] Mpf) 30 ml STK-MED ONCE .ROUTE 11/01/20 07:10 11/01/20 07:10 DC 11/01/20 08:06 Justifications for Admission Other Justification GILBERTO CORTES MD Nov 01, 2020 13:23
[2020-11-01] MEDS: ceFAZolin SODIUM IV Push 1 GM VIAL. IVP SCH ×2 (15:18→20:49)
[2020-11-02 03:16] VITALS: BP 148/91
[2020-11-02] MEDS: ceFAZolin SODIUM IV Push 1 GM VIAL. IVP SCH (04:53)
[2020-11-02] MEDS: HEPARIN for SUB-Q USE 5,000 UNIT/ML VIAL. SQ SCH ×3 (04:58→20:28)
[2020-11-02] MEDS ORDERED: MAGNESIUM HYDROXIDE 2,400 MG/30 ML ORAL.SUSP. PO PRN (06:00)
[2020-11-02 07:00] VITALS: BP 149/84
[2020-11-02] MEDS: METOPROLOL SUCC 24HR ER 25 MG TAB.ER.24H. PO SCH (07:55)
[2020-11-02] MEDS: SENNOSIDES/DOCUSATE 8.6/50MG TABLET. PO SCH (07:56)
--- NOTE | 2020-11-02 08:32 | PDOC ---
[facility] PROGRESS NOTE Date of Service DOS: DATE: 11/02/20 TIME: 08:29 Chief Complaint Chief Complaint Comminuted trimalleolar fracture with dislocation of the tibiotalar joint Neuropathy HTN CAD Alcohol abuse Plan: Right ankle reduced in ED; consultation placed to orthopedic surgery Anticipate surgery fixation tomorrow to allow the swelling to improve prior Provide pain management Resume home medications PT/OT FEN - Cardiac diet PPX - Heparin FULL CODE Dispo - inpatient for above Advance Care Planning: Total time spent [id number] with patient 16 minutes in discussion with goals of care, comfort care, end-of-life care, pain management, code status; patient names his (Carolynn Dowling) as surrogate decision-maker. History of Present Illness History of Present Illness This is a 60-year-old male with past medical history neuropathy, alcohol abuse, presents to the ED with complaints of right ankle injury that occurred yesterday. Patient states she was in the bathroom getting off the toilet when he slipped, injuring his right ankle. Patient has a history of neuropathy unremarkable pain at baseline, but he was unable to bear weight on his right ank le or ambulate. Denies head injury or loss consciousness. Labs in the ED showed WBC 5.5, hemoglobin 13.6, hematocrit 39.7, platelets 116. X-ray right ankle showed a trimalleolus fracture with dislocation. Right ankle was reduced in the ED and patient was placed in a splint. Orthopedic surgery was contacted and anticipate surgical fixation tomorrow. Will admit for further medical ma nagement. 11/01/2020: Patient s/p open reduction internal fixation left trimalleolar fracture. Denies any left lower extremity pain at this time. He will initiate physical therapy tomorrow. Provide pain management as needed. 11/02/2020: Afebrile. POD #1, s/p open reduction internal fixation left ankle bimalleolar trimalleolar fracture. Denies any pain currently. He will work w [facility] physical therapy today and per the recommendations may discharge home or may require detention. Vitals/I&O Vitals/I&O: Vital Signs Date Time Temp Pulse Resp B/P (MAP) Pulse Ox O2 Delivery O2 Flow Rate FiO2 11/02/20 03:16 98.4 78 18 148/91 (110) 96 Room Air 98.4 11/01/20 09:49 2.0 I & O 11/01/20 11/01/20 11/02/20 15:00 23:00 07:00 Intake Total 1180 ml 270 ml 204 ml Output Total 48 ml 225 ml Balance 1132 ml 270 ml -21 ml Physical Exam General: Alert, Oriented X3, Cooperative Heart: Regular rate Lungs: Clear Abdomen: Soft, No tenderness Extremities: Other (Left lower extremity wrapped in bandage with dressings clean/dry/intact) Skin: No rashes Assessment and Plan Assessmemt and Plan Problems Medical Problems: (1) Displaced trimalleolar fracture Status: Acute Comment Review of Relevant I have reviewed the following items yudy (where applicable) has been applied. Medications: Current Medications Medications (Trade) Dose Ordered Sig/Maryann Route PRN Reason Start Time Stop Time Status Last Admin Dose Admin Cefazolin Sodium (Ancef) 1 gm Q6H IVP 11/01/20 13:30 11/02/20 01:31 DC 11/02/20 04:53 Justifications for Admission Other Justification GILBERTO CORTES MD Nov 02, 2020 08:32
[2020-11-02] MEDS: PANTOPRAZOLE 40 MG TABLET.DR. PO SCH (08:34)
[2020-11-02] MEDS: ASPIRIN 325 MG TABLET PO SCH (08:34)
[2020-11-02] MEDS: TAMSULOSIN 0.4 MG CAP.ER.24H. PO SCH (08:35)
[2020-11-02] MEDS: LISINOPRIL 10 MG TABLET PO SCH (08:35)
[2020-11-02 11:00] VITALS: BP 123/50
[2020-11-02 15:00] VITALS: BP 130/79
[2020-11-02] MEDS ORDERED: BISACODYL 10 MG SUPP.RECT. PR PRN (16:00)
[2020-11-02 19:00] VITALS: BP 126/78
[2020-11-02 23:00] VITALS: BP 144/85
[2020-11-03 03:00] VITALS: BP 152/85
[2020-11-03] MEDS: HEPARIN for SUB-Q USE 5,000 UNIT/ML VIAL. SQ SCH ×2 (05:47→14:00)
[2020-11-03] MEDS: PANTOPRAZOLE 40 MG TABLET.DR. PO SCH (06:30)
[2020-11-03] MEDS: METOPROLOL SUCC 24HR ER 25 MG TAB.ER.24H. PO SCH (06:58)
[2020-11-03 07:00] VITALS: BP 144/86
--- NOTE | 2020-11-03 07:22 | PDOC ---
[facility] [facility] PROGRESS NOTE Date of Service DOS: DATE: 11/03/20 TIME: 07:19 Chief Complaint Chief Complaint Comminuted trimalleolar fracture with dislocation of the tibiotalar joint Neuropathy HTN CAD Alcohol abuse Plan: Right ankle reduced in ED; consultation placed to orthopedic surgery Anticipate surgery fixation tomorrow to allow the swelling to improve prior Provide pain management Resume home medications PT/OT FEN - Cardiac diet PPX - Heparin FULL CODE Dispo - inpatient for above Advance Care Planning: Total time spent [id number] with patient 16 minutes in discussion with goals of care, comfort care, end-of-life care, pain management, code status; patient names his (Carolynn Dowling) as surrogate decision-maker. History of Present Illness History of Present Illness This is a 60-year-old male with past medical history neuropathy, alcohol abuse, presents to the ED with complaints of right ankle injury that occurred yesterday. Patient states she was in the bathroom getting off the toilet when he slipped, injuring his right ankle. Patient has a history of neuropathy unremarkable pain at baseline, but he was unable to bear weight on his right ank le or ambulate. Denies head injury or loss consciousness. Labs in the ED showed WBC 5.5, hemoglobin 13.6, hematocrit 39.7, platelets 116. X-ray right ankle showed a trimalleolus fracture with dislocation. Right ankle was reduced in the ED and patient was placed in a splint. Orthopedic surgery was contacted and anticipate surgical fixation tomorrow. Will admit for further medical ma nagement. 11/01/2020: Patient s/p open reduction internal fixation left trimalleolar fracture. Denies any left lower extremity pain at this time. He will initiate physical therapy tomorrow. Provide pain management as needed. 11/02/2020: Afebrile. POD #1, s/p open reduction internal fixation left ankle bimalleolar trimalleolar fracture. Denies any pain currently. He will work w [facility] physical therapy today and per the recommendations may discharge home or may require [facility]. 11/03/2020: No complaints of pain today. POD #2, s/p open reduction internal fixation left ankle fracture. Worked with PT yesterday and recommended home with rolling walker. He will follow up with orthopedic surgery in 2 weeks. Greater than 30 minutes spent managing discharge of this patient. Vitals/I&O Vitals/I&O: Vital Signs Date Time Temp Pulse Resp B/P (MAP) Pulse Ox O2 Delivery O2 Flow Rate FiO2 11/03/20 03:00 98.3 79 18 152/85 (107) 95 Room Air 98.3 I & O 11/02/20 11/02/20 11/03/20 15:00 23:00 07:00 Intake Total 610 ml 150 ml Balance 610 ml 150 ml Physical Exam General: Alert, Oriented X3, Cooperative Heart: Regular rate Lungs: Clear Abdomen: Soft, No tenderness Extremities: Other (Left lower extremity wrapped in bandage with dressings clean/dry/intact) Skin: No rashes Assessment and Plan Assessmemt and Plan Problems Medical Problems: (1) Displaced trimalleolar fracture Status: Acute Comment Review of Relevant I have reviewed the following items yudy (where applicable) has been applied. Medications: Current Medications Medications (Trade) Dose Ordered Sig/Maryann Route PRN Reason Start Time Stop Time Status Last Admin Dose Admin Aspirin (Narda Aspirin) 325 mg [id number] PO 11/02/20 08:00 11/02/20 08:34 Justifications for Admission Other Justification GILBERTO CORTES MD Nov 03, 2020 07:22
[2020-11-03] MEDS: ASPIRIN 325 MG TABLET PO SCH (08:19)
[2020-11-03] MEDS: TAMSULOSIN 0.4 MG CAP.ER.24H. PO SCH (08:20)
[2020-11-03] MEDS: LISINOPRIL 10 MG TABLET PO SCH (08:20)
[2020-11-03] MEDS: SENNOSIDES/DOCUSATE 8.6/50MG TABLET. PO SCH (08:24)
[2020-11-03 11:00] VITALS: BP 129/83
--- NOTE | 2020-11-03 11:29 | PDOC3 ---
Discharge Summary Visit Information Date of Admission: Oct 31, 2020 Date of Discharge: Nov 03, 2020 Final Diagnosis Problems Medical Problems: (1) Displaced trimalleolar fracture Status: Acute Brief Hospital Course Allergies Allergies Coded Allergies Type Severity Reaction Last Updated Verified codeine Adverse Reaction Mild Nausea and Vomiting 06/28/14 Yes Vital Signs Vital Signs Date Time Temp Pulse Resp B/P (MAP) Pulse Ox O2 Delivery O2 Flow Rate FiO2 11/03/20 08:20 79 144/86 11/03/20 08:00 Room Air 11/03/20 07:00 98.2 18 97 98.2 Brief Hospital Course Comminuted trimalleolar fracture with dislocation of the tibiotalar joint Neuropathy HTN CAD Alcohol abuse This is a 60-year-old male with past medical history neuropathy, alcohol abuse, presents to the ED with complaints of right ankle injury that occurred yesterday. Patient states she was in the bathroom getting off the toilet when he slipped, injuring his right ankle. Patient has a history of neuropathy unremarkable pain at baseline, but he was unable to bear weight on his right ankle or ambulate. Denies head injury or loss consciousness. Labs in the ED showed WBC 5.5, hemoglobin 13.6, hematocrit 39.7, platelets 116. X-ray right ankle showed a trimalleolus fracture with dislocation. Right ankle was reduced in the ED and patient was placed in a splint. Orthopedic surgery was contacted and anticipate surgical fixation tomorrow. Will admit for further medical management. 11/01/2020: Patient s/p open reduction internal fixation left trimalleolar fracture. Denies any left lower extremity pain at this time. He will initiate physical therapy tomorrow. Provide pain management as needed. 11/02/2020: Afebrile. POD #1, s/p open reduction internal fixation left ankle bimalleolar trimalleolar fracture. Denies any pain currently. He will work with physical therapy today and per the recommendations may discharge home or may require care home. 11/03/2020: No complaints of pain today. POD #2, s/p open reduction internal fixation left ankle fracture. Worked with PT yesterday and recommended home with rolling walker. He will follow up with orthopedic surgery in 2 weeks. Greater than 30 minutes spent managing discharge of this patient. Discharge Information Condition at Discharge: Improved Follow Up: Weeks Disposition/Orders: D/C to Home Scheduled Amlodipine Besylate (Amlodipine Besylate) 10 Mg Tablet, 10 MG PO DAILY, #30 Prescribed by: ZAK CONTRERAS on 07/26/161324 Last Action: Continued on 10/31/20828 by GILBERTO CORTES MD Amlodipine Besylate (Amlodipine Besylate) 10 Mg Tablet, 10 MG PO DAILY for htn, (Reported) Entered as Reported by: Kristen Holm on 10/31/20221 Last Action: New Order on 10/31/20221 by Kristen Holm Fentanyl (FENTANYL 25mcg/hr) 1 Each Patch.td72, 25 MCG TD Q3DAYS, #10 (Reported) Entered as Reported by: DIEGO PA on 07/25/16 140 Lansoprazole (Lansoprazole) 30 Mg Capsule.dr, 1 CAP PO DAILY, #30 Ref 5 (Reported) Entered as Reported by: BRIGITTE IYER on 11/30/15 0944 Last Action: Converted on 10/31/20828 by GILBERTO CORTES MD Lisinopril (Lisinopril) 10 Mg Tablet, 20 TAB PO BID, #30 Ref 5 Prescribed by: KIERSTEN MITCHELL on 12/04/15923 Lisinopril (Lisinopril) 10 Mg Tablet, 1 TAB PO DAILY for htn, #30 Ref 5 (Reported) Entered as Reported by: Kristen Holm on 10/31/20221 Last Action: Continued on 10/31/20828 by GILBERTO CORTES MD Metoprolol Succinate (Metoprolol Succinate) 50 Mg Tab.er.24h, 0.5 TAB PO DAILY, #90 Prescribed by: ZAK CONTRERAS on 07/26/165 Last Action: Continued on 10/31/20828 by GILBERTO CORTES MD Tamsulosin Hcl (Flomax) 0.4 Mg Cap.er.24h, 1 CAP PO DAILY for prostate, #30 Ref 11 (Reported) Entered as Reported by: Kristen Holm on 10/31/20 0600 Last Action: Continued on 10/31/20828 by GILBERTO CORTES MD Tiotropium [place] (Spiriva) 18 Mcg Cap.w.dev, 1 CAP IH DAILY, #30 Ref 3 Prescribed by: KIERSTEN MITCHELL on 12/04/15923 Last Action: Converted on 10/31/20828 by GILBERTO CORTES MD Vitamin D3/Folic Acid (Noxifol-D3 2,500 Unit-1 mg Tab) 2,500 Unit Tablet, 4,000 UNIT PO DAILY for supplement, (Reported) Entered as Reported by: Kristen Holm on 10/31/20600 Last Action: New Order on 10/31/20600 by Kristen Holm Scheduled PRN Albuterol Sulfate (Proair Hfa) 8.5 Gm Hfa.aer.ad, 1-2 PUFF INH PRN Q4-6HRS PRN for SHORTNESS OF BREATH, #9 (Reported) Entered as Reported by: DIEGO PA on 07/25/16 1405 Chlordiazepoxide Hcl (Chlordiazepoxide Hcl) 10 Mg Capsule, 10 MG PO PRN TID PRN for WITHDRAWAL IRRITABILITY, #30 (Reported) Entered as Reported by: DIEGO PA on 07/25/16 1405 Justicifation of Admission Dx: Justifications for Admission: Justification of Admission Dx: Yes GILBERTO CORTES MD Nov 03, 2020 11:29
[2020-11-03] MEDS ORDERED: HYDR-2761 PO (12:54)
--- NOTE | 2020-11-03 14:04 | NUR ---
patient verbalized understanding of discharge instructions.
== END 2020-11-03 13:55 | disposition home or self-care (01) | DRG 494 ==
LOC: ER 20:06 → 4 NORTH 23:09
PROVIDERS: ADMIT Student in an Organized Health Care Education/Training Program; ATTEND Student in an Organized Health Care Education/Training Program
PROC: 0QSG04Z Reposition Right Tibia with Internal Fixation Device, Open Approach (ICD-10-PCS; 2020-11-01)
PROC: 0QSJ04Z Reposition Right Fibula with Internal Fixation Device, Open Approach (ICD-10-PCS; 2020-11-01)
PROC: 0QSG04Z Reposition Right Tibia with Internal Fixation Device, Open Approach (ICD-10-PCS; principal; 2020-11-01 07:30)
DX: S82.851A Displaced trimalleolar fracture of right lower leg, initial encounter for closed fracture (principal); F17.210 Nicotine dependence, cigarettes, uncomplicated; F10.10 Alcohol abuse, uncomplicated; G62.9 Polyneuropathy, unspecified; I11.0 Hypertensive heart disease with heart failure; I25.10 Atherosclerotic heart disease of native coronary artery without angina pectoris; I50.9 Heart failure, unspecified; Z20.822 Contact with and (suspected) exposure to COVID-19; Z82.49 Family history of ischemic heart disease and other diseases of the circulatory system; K21.9 Gastro-esophageal reflux disease without esophagitis; W18.39XA Other fall on same level, initial encounter; Y93.89 Activity, other specified; Y92.89 Other specified places as the place of occurrence of the external cause; Y99.8 Other external cause status; Z88.8 Allergy status to other drugs, medicaments and biological substances; Z79.899 Other long term (current) drug therapy
CPT/HCPCS: 27818; 36415; 73600; 73610; 80048; 85025; 87426; 99151; A4223; A4930; A6253; A6402; A6443; A6449; A6455; C1713; C1769; J0690; J1100; J1170; J1644; J2270; J2405; J2704; J2795; J3490; J7120; U0003; U0005; 97110-GP; 97116-GP; 97530-GP; 99291-25; G0378

== ENCOUNTER 2020-11-10 07:04 | Inpatient (IN) | payer BC, MEDICARE ==
[~2020-11-10] VITALS: Ht 177.8 cm; Wt 68.5 kg
[~2020-11-10 07:04] MED LIST changes: +HYDR-2761 PO; +HYDR-2765 PO; +TAMS0.4C97 PO; +VITA25006 PO
[2020-11-10] MEDS ORDERED: IV NORMAL SALINE 1000ML BAG 1,000 ML IV ONE (07:30)
--- NOTE | 2020-11-10 07:44 | PHYS DOC ---
Past Medical History Past Medical History: GERD, Heart Disease, Hypertension, Other Additional Past Medical Histor: ALCOHOLISM Past Surgical History: Other Additional Past Surgical Histo: knee sx, urological sx, spinal stimulator Smoking Status: Light Tobacco Smoker Alcohol Use: Occasionally Drug Use: None General Adult EDM: Chief Complaint: MECHANICAL FALL HPI: HPI: Patient is a 60 year old male brought in by EMS after a fall last night. Patient fell on his right hip and complains of severe pain, especially upon movement. He had recent surgical repair of ankle fractures and was discharged from [facility] on 11/03/20. He has a cast on his lower right leg. Denies hitting his head, denies LOC. Denies left hip and leg pain. Patient received last dose of Heartbeat COVID vaccine 08/23/20. Last had food and drinks last night at dinner. Reports currently taking a Narda ASA daily. EMS reports providing patient with 150 mcg of fentanyl in route. Review of Systems: Review of Systems: Constitutional: Denies fever or chills Eyes: Denies redness or eye pain HENT: Denies nasal congestion or sore throat Respiratory: Reports cough. Denies shortness of breath Cardiovascular: Denies chest pain or palpitations GI: Denies abdominal pain, nausea, or vomiting : Denies dysuria or hematuria Musculoskeletal: Reports right hip pain. Reports chronic back pain. Integument: Denies rash or laceration Neurologic: Denies headache, focal weakness or sensory changes Complete systems were reviewed and found to be within normal limits, except as documented in this note. Heart Score: C/O Chest Pain: N/A Current Medications: Current Medications Medications (Trade) Dose Ordered Sig/Maryann Start Time Stop Time Status Last Admin Dose Admin Sodium Chloride 1,000 ml @ 1,000 mls/hr 1X ONCE 11/10/20 07:30 11/10/20 08:29 Allergies: Allergies: Allergies Coded Allergies Type Severity Reaction Last Updated Verified codeine Adverse Reaction Mild Nausea and Vomiting 06/28/14 Yes Physical Exam: PE: Constitutional: Well developed, well nourished, appears in mild distress from pain HENT: Normocephalic, atraumatic Eyes: EOMI, conjunctiva normal, no discharge Neck: Normal range of motion, no midline tenderness, supple Lungs & Thorax: No respiratory distress, equal chest rise and fall Abdomen: Soft, no tenderness.; pelvis stable Skin: Warm, dry, no erythema, no rash Back: No tenderness, no CVA tenderness Extremities: Right hip pain to palpation and movement. Normal movement of toes. Posterior tibial pulses +2 bilaterally. ROM limited secondary to pain Neurologic: Alert and oriented X 3, normal motor function, normal sensory function, no focal deficits noted Psychologic: Affect normal, judgment normal EKG: EKG: Obtained at 0837 Sinus rhythm at 88 bpm QRS 70 ms QT 332 ms QTc 405 ms Radiology/Procedures: Radiology/Procedures: PROCEDURE: HIP RIGHT 2V WITH PELVIS XR BILATERAL HIP (WITH OR WITHOUT PELVIS) 2 VIEWS_RIGHT History: Pain status post fall Comparison: None. Technique: AP view pelvis and coned-down AP and frog-leg lateral views the right hip. Findings: No fracture or dislocation. Mild degenerative changes of the bilateral hips. Pistol-geodesist morphology of the femoral head neck junction. Degenerative changes lower lumbar spine. Sacroiliac joints are unremarkable. Cystectomy clips. Soft tissues otherwise unremarkable. Impression: 1. No acute osseous abnormality of the right hip and pelvis. Electronically signed by: Efrain Ocasio MD (11/10/2020 8:32 AM) [facility] PROCEDURE: CHEST AP ONLY XR CHEST 1V History: Pain status post fall Comparison: 07/25/2016, 12/03/2015 Technique: Portable AP radiograph of the chest. Findings: Lungs are adequately inflated. No airspace consolidation, pleural effusion or pneumothorax. Calcified hilar lymph nodes. Heart size and pulmonary vasculature are normal. A spinal stimulator device projects over the left aspect of the spine with leads terminating at the level of T9-T10. Additional right lower back generator device with lead tips projecting off the upper margin of the radiograph. No acute osseous abnormality. Impression: 1. No acute cardiopulmonary process. Electronically signed by: Efrain Ocasio MD (11/10/2020 8:30 AM) [facility] PROCEDURE: CT PELVIS WO CONTRAST Study: CT pelvis without contrast INDICATION: Right hip pain. COMPARISON: Same day radiographs. TECHNIQUE: Axial CT imaging of the pelvis performed without the use of intravenous contrast. Coronal and sagittal reformats were obtained. One or more of the following individualized dose reduction techniques were utilized for this examination: 1. Automated exposure control 2. Adjustment of the mA and/or kV according to patient size 3. Use of iterative reconstruction technique. FINDINGS: Acute fracture of the right inferior pubic ramus without significant displacement. Acute fracture at the right pubic root/anterior acetabulum e xtending into the hip joint space. Minimal displacement on the order of 4 to 5 mm, image 58 series 2. Acute fracture of the right sacral ala faintly extending into the SI joint, image 31 series 2. Taking into consideration osteopenia, no additional fracture is identified. Moderate arthrosis at the hips. Degenerative changes at the lower lumbar spine. Small right hip joint effusion and soft tissue edema adjacent to the fractures. Vascular calcifications. Several colonic diverticuli. IMPRESSION: Acute fractures involving the right inferior pubic ramus, right pubic root/anterior acetabulum and right sacral ala as described above. Taking into consideration osteopenia no additional fracture is identified. Electronically signed by: YIN IRBY MD (11/10/2020 10:31 AM) [id number] Course & Med Decision Making: Course & Med Decision Making Patient is a 60 year old male who had a fall at home last night. Reports falling on his right hip. Denies head trauma. Patient was discharged on 11/03/20 after surgical repair of right ankle fracture. Hip X-Ray showed no acute osseous abnormality of the right hip and pelvis. Chest X-Ray showed no acute cardiopulmonary process. Physical exam was still concerning for possible occult fractures due to severe pain with movement. Pain difficulty to control in the ED. Patient had received 150mcg of fentanyl in route, 4 mg of morphine in department, and still required 1 mg of [address]id. Pelvis CT showed acute fractures involving the right inferior pubic ramus, right pubic root/anterior acetabulum into joint and right sacral ala. Discussed CT findings with Dr. Butts (orthopedics) who evaluated CT films and reports fractures appear nonsurgical in nature but in agreement with consultation. Patient admitted to the hospital for further treatment and evaluation due to concern regarding pain control and inability to perform activities of daily living. Discussed case with Dr. Pate (hospitalist), who is in agreement with admission. Discussed findings and plan with patient and family, who acknowledge understanding and agreement. Claudette Disclaimer: Claudette Disclaimer: This electronic medical record was generated, in whole or in part, using a voice recognition dictation system. Departure Departure Impression: Primary Impression: Intractable pain Additional Impressions: Fracture of pubic ramus Qualified Codes: S32.591A - Other specified fracture of right pubis, initial encounter for closed fracture Acetabulum fracture, right Qualified Codes: S32.401A - Unspecified fracture of right acetabulum, initial encounter for closed fracture Sacral fracture, closed Qualified Codes: S32.10XA - Unspecified fracture of sacrum, initial encounter for closed fracture Disposition: 09 ADMITTED INPATIENT Admitting Physician: CONOR Jiang) Condition: STABLE Referrals: KIERSTEN MITCHELL MD (PCP) KIERSTEN PERKINS DO Nov 10, 2020 07:44
--- NOTE | 2020-11-10 08:33 | RAD ---
XR CHEST 1V History: Pain status post fall Comparison: 07/25/2016, 12/03/2015 Technique: Portable AP radiograph of the chest. Findings: Lungs are adequately inflated. No airspace consolidation, pleural effusion or pneumothorax. Calcified hilar lymph nodes. Heart size and pulmonary vasculature are normal. A spinal stimulator device proje cts over the left aspect of the spine with leads terminating at the level of T9-T10. Additional right lower back generator device with lead tips projecting off the upper margin of the radiograph. No acu te osseous abnormality. Impression: 1. No acute cardiopulmonary process. Electronically signed by: Efrain Ocasio MD (11/10/2020 8:30 AM) [facility]
--- NOTE | 2020-11-10 08:34 | RAD ---
XR BILATERAL HIP (WITH OR WITHOUT PELVIS) 2 VIEWS_RIGHT History: Pain status post fall Comparison: None. Technique: AP view pelvis and coned-down AP and frog-leg lateral views the right hip. Findings: No fracture or dislocation. Mild degenerative changes of the bilateral hips. Pistol-dental service chief morphology o f the femoral head neck junction. Degenerative changes lower lumbar spine. Sacroiliac joints are unre markable. Cystectomy clips. Soft tissues otherwise unremarkable. Impression: 1. No acute osseous abnormality of the right hip and pelvis. Electronically signed by: Efrain Ocasio MD (11/10/2020 8:32 AM) [facility]
[2020-11-10] MEDS ORDERED: MORPHINE SULFATE 4 MG/ML INJ. IV ONE (09:30)
--- NOTE | 2020-11-10 10:33 | RAD ---
Study: CT pelvis without contrast INDICATION: Right hip pain. COMPARISON: Same day radiographs. TECHNIQUE: Axial CT imaging of the pelvis performed without the use of intravenous contrast. Coronal and sagittal reformats were obtained. One or more of the following individualized dose reduction techniques were utilized for this examinat ion: 1. Automated exposure control 2. Adjustment of the mA and/or kV according to patient size 3. Use of iterative reconstruction technique. FINDINGS: Acute fracture of the right inferior pubic ramus without significant displacement. Acute fracture at the right pubic root/anterior acetabulum extending into the hip joint space. Minimal displacement on the order of 4 to 5 mm, image 58 series 2. Acute fracture of the right sacral ala faintly extending i nto the SI joint, image 31 series 2. Taking into consideration osteopenia, no additional fracture is identified. Moderate arthrosis at the hips. Degenerative changes at the lower lumbar spine. Small right hip joint effusion and soft tissue edema adjacent to the fractures. Vascular calcifications. Several colonic d iverticuli. IMPRESSION: Acute fractures involving the right inferior pubic ramus, right pubic root/anterior acetabulum and ri ght sacral ala as described above. Taking into consideration osteopenia no additional fracture is kang ntified. Electronically signed by: YIN IRBY MD (11/10/2020 10:31 AM) [id number]
[2020-11-10] MEDS ORDERED: HYDROmorphone 2 MG/ML VIAL IVP ONE (11:15)
[2020-11-10] MEDS ORDERED: HYDROmorphone 2 MG/ML VIAL IVP PRN (11:30)
[2020-11-10] MEDS ORDERED: ONDANSETRON PF 4 MG/2 ML VIAL. IV PRN (11:30)
[2020-11-10 12:15] LABS: CALCIUM 8.5 mg/dL (8.5-10.1); CREATININE 0.4 mg/dL (0.7-1.3); GFR 218.7; POTASSIUM 4.8 mmol/L (3.5-5.1)
[2020-11-10 12:20] LABS: ALBUMIN 2.6 g/dL (3.4-5.0); TOTAL PROTEIN 5.6 g/dL (6.4-8.2)
[2020-11-10 12:21] LABS: ALBUMIN/GLOBULIN RATIO 0.9 (1.0-1.7); MAGNESIUM 2.1 mg/dL (1.8-2.4)
[2020-11-10 12:29] LABS: CREATINE KINASE 44 U/L (39-308)
[2020-11-10 13:13] LABS: BASO % 1 % (0-3); EOS % 1 % (0-3); HEMATOCRIT 37.2 % (39.0-53.0); HEMOGLOBIN 12.6 g/dL (13.0-17.5); LYMPH # 1.1 x10^3/uL (1.0-4.8); LYMPH % 19 % (24-48); MEAN CORPUSCULAR HEMOGLOBIN 38 pg (25-35); MEAN CORPUSCULAR HGB CONC 34 g/dL (31-37); MEAN CORPUSCULAR VOLUME 111 fL (79-100); MONO # 0.6 x10^3/uL (0.0-1.1); MONO % 10 % (0-9); NEUT # 4.1 x10^3/uL (1.8-7.7); NEUT % 69 % (31-73); PLATELET COUNT 234 x10^3/uL (140-400); RED BLOOD COUNT 3.36 x10^6/uL (4.30-5.70); RED CELL DISTRIBUTION WIDTH 14.4 % (11.5-14.5); WHITE BLOOD COUNT 5.9 x10^3/uL (4.0-11.0)
[2020-11-10] MEDS ORDERED: MORPHINE SULFATE 2 MG/ML INJ. IV PRN (13:45)
[2020-11-10] MEDS ORDERED: MORPHINE SULFATE 2 MG/ML INJ. IVP PRN (13:45)
[2020-11-10] MEDS ORDERED: PROCHLORPERAZINE 10 MG/2 ML VIAL. IV PRN (13:45)
[2020-11-10] MEDS ORDERED: oxyCODONE/APAP 5/325 1 TAB TABLET PO PRN ×2 (13:45)
[2020-11-10] MEDS ORDERED: DEXTROSE 50% 25 GM / 50ML DISP.SYRIN. IV PRN (13:45)
[2020-11-10] MEDS ORDERED: DOCUSATE SODIUM 100 MG CAPSULE. PO PRN (13:45)
[2020-11-10] MEDS ORDERED: ACETAMINOPHEN 325 MG TABLET. PO PRN (13:45)
[2020-11-10] MEDS ORDERED: ONDANSETRON PF 4 MG/2 ML VIAL. IVP PRN (13:45)
[2020-11-10] MEDS ORDERED: SENNOSIDES 8.6 MG TABLET PO PRN (13:45)
--- NOTE | 2020-11-10 13:53 | PDOC1 ---
History and Physical Date of Service: DOS: DATE: 11/10/20 TIME: 13:44 Chief Complaint: Chief Complain: Fall History of Present Illness: HPI: 60 year old male brought in by EMS after a fall last night. Patient fell on his right hip and complains of severe pain, especially upon movement. He had recent surgical repair of ankle fractures and was discharged from on 11/03/20. He has a cast on his lower right leg. Denies hitting his head, denies LOC. Denies left hip and leg pain. Patient recieved last dose of Spiration COVThree Melons vaccine 08/23/20. Last had food and drinks last night at dinner. Past Medical/Surgical History: PMH/PSH: Past Medical History: GERD, Heart Disease, Hypertension, ALCOHOLISM Past Surgical History: knee sx, urological sx, spinal stimulator Allergies: Allergies: Coded Allergies: codeine (Verified Adverse Reaction, Mild, Nausea and Vomiting, 06/28/14) Family History: Family History: Reviewed with no relevant findings Social History: Social History: Smoking Status: Light Tobacco Smoker Alcohol Use: Occasionally Drug Use: None Current Medications: Current Medications Current Medications Sodium Chloride 1,000 ml @ 1,000 mls/hr 1X ONCE IV Last administered on 11/10/20at 09:42; Start 11/10/20 at 07:30; Stop 11/10/20 at 08:29; Status DC Morphine Sulfate (Morphine Sulfate) 4 mg 1X ONCE IV Last administered on 11/10/20at 09:42; Start 11/10/20 at 09:30; Stop 11/10/20 at 09:31; Status DC Hydromorphone HCl (Dilaudid) 1 mg 1X ONCE IVP Last administered on 11/10/20at 11:34; Start 11/10/20 at 11:15; Stop 11/10/20 at 11:16; Status DC Ondansetron HCl (Zofran) 4 mg PRN Q8HRS PRN IV NAUSEA/VOMITING; Start 11/10/20 at 11:30; Stop 11/11/20 at 11:29 Hydromorphone HCl (Dilaudid) 0.5 mg Q4HRS PRN IVP MODERATE PAIN 4-6; Start 11/10/20 at 11:30; Stop 11/11/20 at 11:29 Active Scripts Active Metoprolol Succinate 50 Mg Tab.er.24h 0.5 Tab PO DAILY Spiriva (Tiotropium [place]) 18 Mcg Cap.w.dev 1 Cap IH DAILY Lisinopril 10 Mg Tablet 20 Tab PO BID Reported Noxifol-D3 2,500 Unit-1 mg Tab (Vitamin D3/Folic Acid) 2,500 Unit Tablet 4,000 Unit PO DAILY Flomax (Tamsulosin Hcl) 0.4 Mg Cap.er.24h 1 Cap PO DAILY Amlodipine Besylate 10 Mg Tablet 10 Mg PO DAILY Proair Hfa (Albuterol Sulfate) 8.5 Gm Hfa.aer.ad 1-2 Puff INH PRN Q4-6HRS PRN Lansoprazole 30 Mg Capsule. 1 Cap PO DAILY ROS: Review of Systems Review of System REVIEW OF SYSTEMS: GENERAL: Denies weakness SKIN: No bruising, hair changes or rashes. EYES: No blurred, double or loss of vision. NOSE AND THROAT: No history of nosebleeds, hoarseness or sore throat. HEART: No history of palpitations, chest pain or shortness of breath on exertion. LUNGS: Denies cough, hemoptysis, wheezing or shortness of breath. GASTROINTESTINAL: Denies changes in appetite, nausea, vomiting, diarrhea or constipation. GENITOURINARY: No history of frequency, urgency, hesitancy or nocturia. NEUROLOGIC: Denies history of numbness, tingling, or tremor. PSYCHIATRIC: No history of panic, anxiety or depression. ENDOCRINE: No history of heat or cold intolerance, polyuria or polydipsia. EXTREMITIES: Denies joint pain, pain on walking or stiffness. Physical Exam: Vital Signs: Vital Signs Date Time Temp Pulse Resp B/P (MAP) Pulse Ox O2 Delivery O2 Flow Rate FiO2 11/10/20 09:42 89 16 144/85 (104) 95 Room Air 11/10/20 07:09 98.5 98.5 Physcial Exam: GEN: No apparent distress. Alert and oriented HEENT: Normal cephalic, atraumatic, external auditory canals are patent EYES: Extraocular muscles are intact, pupil are equally round and reactive to light and accommodation MUSCULOSKELETAL: Well developed , well nourished, good range of motion ENDOCRINE: No thyromegaly was palpated LYMPHATICS: No cervical chain or axillary nodes were noted HEMATOPOIETIC: No bruising NECK: Supple, no JVD, no thyromegaly was noted LUNGS: Clear to auscultation in all lung negron without rhonchi or wheezing HEART: RRR, S!, S2 present. Peripheral pulses intact, no obvious murmurs noted ABDOMEN: Soft, nontender. Positive bowel sounds, no organomegaly, normal bowel sounds EXTREMITIES: Without clubbing, cyanosis, or edema. Pedal pulses intact. Negative Homans sign NEUROLOGIC: Normal speech and tone. A&O x 3, moves all extremities, no obvious focal deficits PSYCHIATRIC: Normal affect, normal mood. Stable SKIN: No ulcerations or rashes, good skin turgor, no jaundice VASCULAR: Good capillary refill, neurovascular bundle appears to be intact Labs: Labs: Laboratory Tests Test 11/10/20 11:50 11/10/20 12:40 Sodium Level 136 mmol/L (136-145) Potassium Level 4.8 mmol/L (3.5-5.1) Chloride Level 104 mmol/L (98-107) Carbon Dioxide Level 25 mmol/L (21-32) Anion Gap 7 (6-14) Blood Urea Nitrogen 8 mg/dL (8-26) Creatinine 0.4 mg/dL (0.7-1.3) Estimated GFR (Cockcroft-Gault) 218.7 BUN/Creatinine Ratio 20 (6-20) Glucose Level 89 mg/dL (70-99) Calcium Level 8.5 mg/dL (8.5-10.1) Magnesium Level 2.1 mg/dL (1.8-2.4) Total Bilirubin 1.0 mg/dL (0.2-1.0) Aspartate Amino Transf (AST/SGOT) 33 U/L (15-37) Alanine Aminotransferase (ALT/SGPT) 47 U/L (16-63) Alkaline Phosphatase 69 U/L (46-116) Creatine Kinase 44 U/L (39-308) Creatine Kinase MB (Mass) 0.6 ng/mL (0.0-3.6) Creatine Kinase MB Relative Index % (0-4) Troponin I Quantitative < 0.017 ng/mL (0.000-0.055) Total Protein 5.6 g/dL (6.4-8.2) Albumin 2.6 g/dL (3.4-5.0) Albumin/Globulin Ratio 0.9 (1.0-1.7) White Blood Count 5.9 x10^3/uL (4.0-11.0) Red Blood Count 3.36 x10^6/uL (4.30-5.70) Hemoglobin 12.6 g/dL (13.0-17.5) Hematocrit 37.2 % (39.0-53.0) Mean Corpuscular Volume 111 fL (79-100) Mean Corpuscular Hemoglobin 38 pg (25-35) Mean Corpuscular Hemoglobin Concent 34 g/dL (31-37) Red Cell Distribution Width 14.4 % (11.5-14.5) Platelet Count 234 x10^3/uL (140-400) Neutrophils (%) (Auto) 69 % (31-73) Lymphocytes (%) (Auto) 19 % (24-48) Monocytes (%) (Auto) 10 % (0-9) Eosinophils (%) (Auto) 1 % (0-3) Basophils (%) (Auto) 1 % (0-3) Neutrophils # (Auto) 4.1 x10^3/uL (1.8-7.7) Lymphocytes # (Auto) 1.1 x10^3/uL (1.0-4.8) Monocytes # (Auto) 0.6 x10^3/uL (0.0-1.1) Eosinophils # (Auto) 0.0 x10^3/uL (0.0-0.7) Basophils # (Auto) 0.0 x10^3/uL (0.0-0.2) Laboratory Tests Test 11/10/20 11:50 11/10/20 12:40 Sodium Level 136 mmol/L (136-145) Potassium Level 4.8 mmol/L (3.5-5.1) Chloride Level 104 mmol/L (98-107) Carbon Dioxide Level 25 mmol/L (21-32) Anion Gap 7 (6-14) Blood Urea Nitrogen 8 mg/dL (8-26) Creatinine 0.4 mg/dL (0.7-1.3) Estimated GFR (Cockcroft-Gault) 218.7 BUN/Creatinine Ratio 20 (6-20) Glucose Level 89 mg/dL (70-99) Calcium Level 8.5 mg/dL (8.5-10.1) Magnesium Level 2.1 mg/dL (1.8-2.4) Total Bilirubin 1.0 mg/dL (0.2-1.0) Aspartate Amino Transf (AST/SGOT) 33 U/L (15-37) Alanine Aminotransferase (ALT/SGPT) 47 U/L (16-63) Alkaline Phosphatase 69 U/L (46-116) Creatine Kinase 44 U/L (39-308) Creatine Kinase MB (Mass) 0.6 ng/mL (0.0-3.6) Creatine Kinase MB Relative Index % (0-4) Troponin I Quantitative < 0.017 ng/mL (0.000-0.055) Total Protein 5.6 g/dL (6.4-8.2) Albumin 2.6 g/dL (3.4-5.0) Albumin/Globulin Ratio 0.9 (1.0-1.7) White Blood Count 5.9 x10^3/uL (4.0-11.0) Red Blood Count 3.36 x10^6/uL (4.30-5.70) Hemoglobin 12.6 g/dL (13.0-17.5) Hematocrit 37.2 % (39.0-53.0) Mean Corpuscular Volume 111 fL (79-100) Mean Corpuscular Hemoglobin 38 pg (25-35) Mean Corpuscular Hemoglobin Concent 34 g/dL (31-37) Red Cell Distribution Width 14.4 % (11.5-14.5) Platelet Count 234 x10^3/uL (140-400) Neutrophils (%) (Auto) 69 % (31-73) Lymphocytes (%) (Auto) 19 % (24-48) Monocytes (%) (Auto) 10 % (0-9) Eosinophils (%) (Auto) 1 % (0-3) Basophils (%) (Auto) 1 % (0-3) Neutrophils # (Auto) 4.1 x10^3/uL (1.8-7.7) Lymphocytes # (Auto) 1.1 x10^3/uL (1.0-4.8) Monocytes # (Auto) 0.6 x10^3/uL (0.0-1.1) Eosinophils # (Auto) 0.0 x10^3/uL (0.0-0.7) Basophils # (Auto) 0.0 x10^3/uL (0.0-0.2) Images: Images PROCEDURE: CHEST AP ONLY Impression: 1. No acute cardiopulmonary process. PROCEDURE: CT PELVIS WO CONTRAST IMPRESSION: Acute fractures involving the right inferior pubic ramus, right pubic root/anterior acetabulum and right sacral ala as described above. Taking into consideration osteopenia no additional fracture is identified. Assessment/Plan Assessment/Plan Mechanical fall Acute fractures involving the right inferior pubic ramus, right pubic root/anterior acetabulum and right sacral ala Severe protein malnutrition History of CAD GERD History of hypertension Admit to medicine for further management Ortho consult Fall precautions IV and p.o. pain control Lovenox for DVT prophylaxis Protonix GI prophylaxis ADA diet Full code Discussed with RN and SW Disposition inpatient management as above Surrogate decision maker is Justifications for Admission Other Justification Fall with pubic fracture DALIA HINES MD Nov 10, 2020 13:53
[2020-11-10] MEDS ORDERED: ALBUTEROL SULFATE 2.5 MG/3 ML NEBU. NEB PRN (14:30)
[2020-11-10 14:55] LABS: PLT ESTIMATE ADEQUATE (ADEQUATE)
[2020-11-10] MEDS ORDERED: IPRATRPIUM/ALBUTEROL 0.5/2.5MG 3 ML NEBU. NEB SCH (16:00)
[2020-11-10 19:00] VITALS: BP 94/54
[2020-11-10] MEDS ORDERED: C.DIFF MED SCREEN BY RX. MC ONE (19:45)
[2020-11-10] MEDS: HYDROcodone/APAP 7.5/325MG 1 TAB TABLET PO PRN (19:59)
[2020-11-10] MEDS: LISINOPRIL 10 MG TABLET PO SCH ×2 (21:00→21:35)
[2020-11-10] MEDS: ENOXAPARIN 40 MG/0.4 ML SYRINGE. SQ SCH (21:34)
[2020-11-10] MEDS: HYDROmorphone 2 MG/ML VIAL IVP PRN (22:06)
--- NOTE | 2020-11-10 22:23 | EKG ---
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
[2020-11-10 23:00] VITALS: BP 124/71
[2020-11-11] MEDS: HYDROcodone/APAP 7.5/325MG 1 TAB TABLET PO PRN ×4 (02:08→22:08)
[2020-11-11 03:00] VITALS: BP 142/80
[2020-11-11 06:12] LABS: BASO % 1 % (0-3); EOS % 1 % (0-3); HEMATOCRIT 30.8 % (39.0-53.0); HEMOGLOBIN 10.8 g/dL (13.0-17.5); LYMPH # 1.5 x10^3/uL (1.0-4.8); LYMPH % 28 % (24-48); MEAN CORPUSCULAR HEMOGLOBIN 39 pg (25-35); MEAN CORPUSCULAR HGB CONC 35 g/dL (31-37); MEAN CORPUSCULAR VOLUME 110 fL (79-100); MONO # 0.4 x10^3/uL (0.0-1.1); MONO % 7 % (0-9); NEUT # 3.3 x10^3/uL (1.8-7.7); NEUT % 63 % (31-73); PLATELET COUNT 209 x10^3/uL (140-400); RED CELL DISTRIBUTION WIDTH 14.9 % (11.5-14.5); WHITE BLOOD COUNT 5.3 x10^3/uL (4.0-11.0)
[2020-11-11 06:39] LABS: CALCIUM 8.7 mg/dL (8.5-10.1); CREATININE 0.7 mg/dL (0.7-1.3); GFR 114.6; POTASSIUM 3.6 mmol/L (3.5-5.1)
[2020-11-11 07:00] VITALS: BP 157/85
[2020-11-11] MEDS: TAMSULOSIN 0.4 MG CAP.ER.24H. PO SCH (08:23)
[2020-11-11] MEDS: LISINOPRIL 10 MG TABLET PO SCH ×2 (08:23→21:21)
[2020-11-11] MEDS ORDERED: NON FORMULARY ITEM (Tiotropium Bromide (Spiriva) 1 CAP) IH SCH (09:00)
--- NOTE | 2020-11-11 10:13 | NUR ---
SW following. Discussed with RN, pt from, home with , room air, cardiac diet. Ortho consulted. PT/OT ordered. RN advised no SW needs at this time. SW will continue to follow.
[2020-11-11 11:05] VITALS: BP 129/84
--- NOTE | 2020-11-11 11:56 | NUR ---
Report given to GILLIAN Damico at this time.
[2020-11-11 15:00] VITALS: BP_SYST 119; BP_SYST 131; BP_DIAS 69; BP_DIAS 82
[2020-11-11] MEDS ORDERED: POLYETHYLENE GLYCOL 3350 17 GM PACKET. PO PRN (15:00)
--- NOTE | 2020-11-11 15:16 | PDOC ---
[employer] PROGRESS NOTE Date of Service DOS: DATE: 11/11/20 TIME: 14:51 Chief Complaint Chief Complaint A/P: Mechanical fall Acute fractures involving the right inferior pubic ramus, right pubic root/anterior acetabulum and right sacral ala Severe protein malnutrition History of CAD GERD History of hypertension Admit to medicine for further management Ortho consult Fall precautions IV and p.o. pain control Lovenox for DVT prophylaxis Protonix GI prophylaxis ADA diet Full code Discussed with RN and SW Disposition inpatient management as above Surrogate decision maker is History of Present Illness History of Present Illness Mr Dowling is a 60 year old male w/ PMHx GERD, HTN, bilateral neuropathy brought in by EMS after a fall last night. Patient fell on his right hip and complains of severe pain, especially upon movement. He had recent surgical repair of ankle fractures and was discharged from [facility] on 11/03/20. He has a cast on his lower right leg. Denies hitting his head, denies LOC. Denies left h ip and leg pain. Patient received last dose of [employer] COVID vaccine 08/23/20. Last had food and drinks last night at dinner. Found on CT with acute fractures involving the right inferior pubic ramus, right pubic root/anterior acetabulum and right sacral ala. Pain is 7/10 currently, does not feel he can work with therapy yet. Vitals/I&O Vitals/I&O: Vital Signs Date Time Temp Pulse Resp B/P (MAP) Pulse Ox O2 Delivery O2 Flow Rate FiO2 11/11/20 11:05 99.0 75 16 129/84 (99) 93 Room Air 99.0 I & O 11/10/20 11/10/20 11/11/20 15:00 23:00 07:00 Intake Total 1000 ml 20 ml 100 ml Balance 1000 ml 20 ml 100 ml Physical Exam Lungs: Clear Labs Labs: Laboratory Tests Test 11/11/20 05:25 White Blood Count 5.3 x10^3/uL (4.0-11.0) Red Blood Count 2.80 x10^6/uL (4.30-5.70) Hemoglobin 10.8 g/dL (13.0-17.5) Hematocrit 30.8 % (39.0-53.0) Mean Corpuscular Volume 110 fL (79-100) Mean Corpuscular Hemoglobin 39 pg (25-35) Mean Corpuscular Hemoglobin Concent 35 g/dL (31-37) Red Cell Distribution Width 14.9 % (11.5-14.5) Platelet Count 209 x10^3/uL (140-400) Neutrophils (%) (Auto) 63 % (31-73) Lymphocytes (%) (Auto) 28 % (24-48) Monocytes (%) (Auto) 7 % (0-9) Eosinophils (%) (Auto) 1 % (0-3) Basophils (%) (Auto) 1 % (0-3) Neutrophils # (Auto) 3.3 x10^3/uL (1.8-7.7) Lymphocytes # (Auto) 1.5 x10^3/uL (1.0-4.8) Monocytes # (Auto) 0.4 x10^3/uL (0.0-1.1) Eosinophils # (Auto) 0.0 x10^3/uL (0.0-0.7) Basophils # (Auto) 0.0 x10^3/uL (0.0-0.2) Sodium Level 135 mmol/L (136-145) Potassium Level 3.6 mmol/L (3.5-5.1) Chloride Level 100 mmol/L (98-107) Carbon Dioxide Level 28 mmol/L (21-32) Anion Gap 7 (6-14) Blood Urea Nitrogen 10 mg/dL (8-26) Creatinine 0.7 mg/dL (0.7-1.3) Estimated GFR (Cockcroft-Gault) 114.6 Glucose Level 146 mg/dL (70-99) Calcium Level 8.7 mg/dL (8.5-10.1) Phosphorus Level 4.0 mg/dL (2.6-4.7) Magnesium Level 2.0 mg/dL (1.8-2.4) Assessment and Plan Assessmemt and Plan Problems Medical Problems: (1) Acetabulum fracture, right Status: Acute (2) Fracture of pubic ramus Status: Acute (3) Intractable pain Status: Acute (4) Sacral fracture, closed Status: Acute Comment Review of Relevant I have reviewed the following items yudy (where applicable) has been applied. Medications: Current Medications Medications (Trade) Dose Ordered Sig/Maryann Route PRN Reason Start Time Stop Time Status Last Admin Dose Admin Enoxaparin Sodium (Lovenox 40mg Syringe) 40 mg Q24H SQ 11/10/20 21:00 11/10/20 21:34 Amlodipine Besylate (Norvasc) 10 mg DAILY PO 11/11/20 09:00 11/11/20 08:24 Lisinopril (Prinivil) 20 mg BID PO 11/10/20 21:00 11/11/20 08:23 Tamsulosin HCl (Flomax) 0.4 mg DAILY PO 11/11/20 09:00 11/11/20 08:23 Acetaminophen/ Hydrocodone Bitart (Lortab 7.5/325) 1 tab PRN Q6HRS PRN PO PAIN 11/10/20 19:30 11/11/20 08:25 Hydromorphone HCl (Dilaudid) 0.4 mg PRN Q2HRS PRN IVP PAIN 11/10/20 19:30 11/10/20 22:06 Justifications for Admission Other Justification Fall with pubic fracture CHAKA BAUTISTA MD Nov 11, 2020 15:16
[2020-11-11 19:00] VITALS: BP 117/69
[2020-11-11] MEDS: PSYLLIUM HUSK (SUGAR FREE) 1 PKT PACKET PO SCH (21:00)
[2020-11-11] MEDS: ENOXAPARIN 40 MG/0.4 ML SYRINGE. SQ SCH (21:23)
[2020-11-11 23:00] VITALS: BP_SYST 144; BP_SYST 83; BP_DIAS 69; BP_DIAS 83
[2020-11-12 03:00] VITALS: BP 103/62
[2020-11-12 04:46] LABS: HEMATOCRIT 32.1 % (39.0-53.0); RED BLOOD COUNT 2.92 x10^6/uL (4.30-5.70); RED CELL DISTRIBUTION WIDTH 14.6 % (11.5-14.5); WHITE BLOOD COUNT 4.6 x10^3/uL (4.0-11.0)
[2020-11-12 05:11] LABS: ALBUMIN 2.2 g/dL (3.4-5.0); ALBUMIN/GLOBULIN RATIO 0.6 (1.0-1.7); CALCIUM 8.4 mg/dL (8.5-10.1); CREATININE 0.7 mg/dL (0.7-1.3); GFR 114.6; POTASSIUM 3.7 mmol/L (3.5-5.1); TOTAL BILIRUBIN 0.6 mg/dL (0.2-1.0); TOTAL PROTEIN 5.7 g/dL (6.4-8.2)
[2020-11-12 07:00] VITALS: BP 159/89
--- NOTE | 2020-11-12 07:37 | CONS ---
DATE OF CONSULTATION: 11/11/2020 INITIAL ORTHOPEDIC CONSULTATION REQUESTING PHYSICIAN: Williams Pate MD REASON FOR CONSULTATION: Pelvis fracture. HISTORY OF PRESENT ILLNESS: The patient is a 60-year-old male who had a surgical repair of his right ankle fracture by Dr. Nicolette tejada and was discharged in a cast from [place]. He states that he was in the bathroom brushing his teeth and his was looking at his cast wondering if there is a bit of rubbing at the top of the cast area and she came up behind him where he did not notice it and touched around the area, startled him and he fell backwards. He states that he has neuropathy and has difficulty feeling anything in the cast itself and ended up falling on his bottom and has been bearing weight with either leg, the right more than the left, in the groin area. He denies any head injury or other joint pain and has no pain in the area where his ankle was previously fixed. PAST MEDICAL HISTORY: Reflux, heart disease, hypertension. PAST SURGICAL HISTORY: Right ankle fracture surgery most recently as well as previous knee surgery, urological procedure and placement of a spinal stimulator. SOCIAL HISTORY: He smokes tobacco occasionally. Occasional alcohol use, denies drug use. MEDICATIONS: List is reviewed. ALLERGIES: INCLUDE CODEINE, WHICH CAUSES SOME NAUSEA AND VOMITING. REVIEW OF SYSTEMS: Again, he denies any head injury, neck or back pain, radiating pain, focal weakness, numbness, tingling. Significant really only for the pelvis, groin area pain, right-sided a bit more than left and denies any radiation. He does have longstanding neuropathy of both feet and indicates no change based on the recent injury. PHYSICAL EXAMINATION: His cast appears to be well fitting. There are no signs of rubbing or swelling in the cast. He can wiggle his toes. He really has no sensation distally due to his neuropathy, but again no sign of compromise of his capillary refill and he can move the extremity readily within the cast showing no signs of it being tight. Aside from the stocking distribution neuropathy, he has normal Examination of the left ankle and has only mild pain with internal and external rotation of his hips, right more so than the left. He is tender on palpation with weightbearing through an extended extremity, again right-sided worse than left that he feels in the groin area. IMAGING: X-rays show pubic rami fractures. CT scan of the pelvis shows fracture of the inferior pubic ramus on the right side as well as fracture with extension to the anterior acetabulum on the right and a right sacral ala fracture. Hip joint space is well maintained. OVERALL IMPRESSION: 1. Right pubic rami fractures extending to the anterior aspect of the acetabulum with minimal displacement. 2. Previous right ankle surgery with a cast. 3. Neuropathy in bilateral lower extremities. TREATMENT PLAN: I went over with him that these injuries are nonsurgical in nature and he could bear some weight to walk for necessary activities and to transfer, but pain control would be necessary as he is really having significant problems bearing weight on either lower extremity. I recommended some physical therapy to get him up and around for necessities and work on transfers to minimize his pain along with pain medicine as tolerated. He is scheduled to have a followup this week with planned cast removal along with suture removal and conversion to a Cam walker boot for the right ankle area, which continues to seem to be a reasonable plan as he has no current swelling or pain in the cast currently. ESTELLA/TERESITA/DINAH DR: Bolivar TID: [id number]
[2020-11-12] MEDS: TAMSULOSIN 0.4 MG CAP.ER.24H. PO SCH (08:28)
[2020-11-12] MEDS: LISINOPRIL 10 MG TABLET PO SCH ×2 (08:29→21:00)
[2020-11-12] MEDS: HYDROcodone/APAP 7.5/325MG 1 TAB TABLET PO PRN ×3 (08:30→20:59)
[2020-11-12 11:00] VITALS: BP 110/70
--- NOTE | 2020-11-12 11:26 | PDOC ---
[employer] PROGRESS NOTE Date of Service DOS: DATE: 11/12/20 TIME: 11:23 Chief Complaint Chief Complaint A/P: Mechanical fall Acute fractures involving the right inferior pubic ramus, right pubic root/anterior acetabulum and right sacral ala Severe protein malnutrition History of CAD GERD History of hypertension Right ankle fracture - still immobilized in cast Macrocytic anemia - will check B12 Admit to medicine for further management Ortho consult Fall precautions IV and p.o. pain control Lovenox for DVT prophylaxis Protonix GI prophylaxis ADA diet Full code Discussed with RN and SW Disposition inpatient management as above Surrogate decision maker is History of Present Illness History of Present Illness Mr Dowling is a 60 year old male w/ PMHx GERD, HTN, bilateral neuropathy brought in by EMS after a fall last night. Patient fell on his right hip and complains of severe pain, especially upon movement. He had recent surgical repair of ankle fractures and was discharged from [facility] on 11/03/20. He has a cast on his lower right leg. Denies hitting his head, denies LOC. Denies left hip and leg pain. Patient received last dose of [employer] COVID vaccine 08/23/20. Last had food and drinks last night at dinner. 11/11: Found on CT with acute fractures involving the right inferior pubic ramus, right pubic root/anterior acetabulum and right sacral ala. Pain is 7/10, he can work with therapy yet. Afebrile. Even with transition from bed to chair with physical therapy he was unable to use walker appropriately and they have recommended acute rehab especially since he cannot stop himself from bearing some weight on his right foot he claims due to the weight of the cast. He is amenable to acute rehab though frustrated. Vitals/I&O Vitals/I&O: Vital Signs Date Time Temp Pulse Resp B/P (MAP) Pulse Ox O2 Delivery O2 Flow Rate FiO2 11/12/20 09:00 Room Air 11/12/20 08:29 81 159/89 11/12/20 07:00 98.3 16 93 98.3 I & O 11/11/20 11/11/20 11/12/20 15:00 23:00 07:00 Intake Total 210 ml 200 ml Output Total 400 ml 400 ml Balance -190 ml -200 ml Physical Exam General: Alert, Oriented X3, Cooperative Lungs: Clear Labs Labs: Laboratory Tests Test 11/11/20 13:40 11/12/20 03:20 Iron Level 44 ug/dL (65-175) Total Iron Binding Capacity 260 ug/dL (250-450) Iron Saturation 17 % (15-34) White Blood Count 4.6 x10^3/uL (4.0-11.0) Red Blood Count 2.92 x10^6/uL (4.30-5.70) Hemoglobin 11.0 g/dL (13.0-17.5) Hematocrit 32.1 % (39.0-53.0) Mean Corpuscular Volume 110 fL (79-100) Mean Corpuscular Hemoglobin 38 pg (25-35) Mean Corpuscular Hemoglobin Concent 34 g/dL (31-37) Red Cell Distribution Width 14.6 % (11.5-14.5) Platelet Count 223 x10^3/uL (140-400) Sodium Level 139 mmol/L (136-145) Potassium Level 3.7 mmol/L (3.5-5.1) Chloride Level 103 mmol/L (98-107) Carbon Dioxide Level 32 mmol/L (21-32) Anion Gap 4 (6-14) Blood Urea Nitrogen 8 mg/dL (8-26) Creatinine 0.7 mg/dL (0.7-1.3) Estimated GFR (Cockcroft-Gault) 114.6 BUN/Creatinine Ratio 11 (6-20) Glucose Level 120 mg/dL (70-99) Calcium Level 8.4 mg/dL (8.5-10.1) Total Bilirubin 0.6 mg/dL (0.2-1.0) Aspartate Amino Transf (AST/SGOT) 25 U/L (15-37) Alanine Aminotransferase (ALT/SGPT) 31 U/L (16-63) Alkaline Phosphatase 59 U/L (46-116) Total Protein 5.7 g/dL (6.4-8.2) Albumin 2.2 g/dL (3.4-5.0) Albumin/Globulin Ratio 0.6 (1.0-1.7) Assessment and Plan Assessmemt and Plan Problems Medical Problems: (1) Acetabulum fracture, right Status: Acute (2) Fracture of pubic ramus Status: Acute (3) Intractable pain Status: Acute (4) Sacral fracture, closed Status: Acute Comment Review of Relevant I have reviewed the following items yudy (where applicable) has been applied. Justifications for Admission Other Justification Fall with pubic fracture CHAKA BAUTISTA MD Nov 12, 2020 11:26
--- NOTE | 2020-11-12 14:47 | NUR ---
YUSRA following. Discussed with RN, therapy recommending SNF. YUSRA met with pt, pt agreeable - would like somewhere in [place] where he lives. [facility]erral faxed to [facility] - will fax to [facility] if [facility] declines or doesn't have a bed. YUSRA will continue to follow. Addendum: 11/12/20 at 1602 by CELSO MENG Pt accepted at [facility], pending insurance auth. RN notified.
[2020-11-12 15:00] VITALS: BP 168/87
[2020-11-12 19:00] VITALS: BP 123/76
[2020-11-12] MEDS: ENOXAPARIN 40 MG/0.4 ML SYRINGE. SQ SCH (20:59)
[2020-11-12] MEDS: PSYLLIUM HUSK (SUGAR FREE) 1 PKT PACKET PO SCH (21:00)
[2020-11-12 23:00] VITALS: BP 133/76
[2020-11-13 03:00] VITALS: BP 150/86
[2020-11-13 05:35] LABS: CALCIUM 9.1 mg/dL (8.5-10.1); CREATININE 0.7 mg/dL (0.7-1.3); GFR 114.6; POTASSIUM 4.7 mmol/L (3.5-5.1)
[2020-11-13] MEDS: HYDROcodone/APAP 7.5/325MG 1 TAB TABLET PO PRN ×3 (06:17→21:59)
[2020-11-13 07:00] VITALS: BP 137/83
--- NOTE | 2020-11-13 07:13 | PDOC ---
[employer] PROGRESS NOTE Date of Service DOS: DATE: 11/13/20 TIME: 07:13 Chief Complaint Chief Complaint A/P: Mechanical fall Acute fractures involving the right inferior pubic ramus, right pubic root/anterior acetabulum and right sacral ala Severe protein malnutrition History of CAD GERD History of hypertension Right ankle fracture - still immobilized in cast Macrocytic anemia - B12 low - replaced Admit to medicine for further management Ortho consult Fall precautions IV and p.o. pain control Lovenox for DVT prophylaxis Protonix GI prophylaxis ADA diet Full code Discussed with RN and SW Disposition inpatient management as above Surrogate decision maker is History of Present Illness History of Present Illness Mr Dowling is a 60 year old male w/ PMHx GERD, HTN, bilateral neuropathy brought in by EMS after a fall last night. Patient fell on his right hip and complains of severe pain, especially upon movement. He had recent surgical repair of ankle fractures and was discharged from [facility] on 11/03/20. He has a cast on his lower right leg. Denies hitting his head, denies LOC. Denies left hip and leg pain. Patient received last dose of [employer] COVID vaccine 08/23/20. Last had food and drinks last night at dinner. 11/11: Found on CT with acute fractures involving the right inferior pubic ramus, right pubic root/anterior acetabulum and right sacral ala. Pain is /10, he can work with therapy yet. 11/12: Afebrile. Even with transition from bed to chair with physical therapy he was unable to use walker appropriately and they have recommended acute rehab especially since he cannot stop himself from bearing some weight on his right foot he claims due to the weight of the cast. He is amenable to acute rehab though frustrated. Afebrile. Still some pain on lifting the right leg. No shortness of breath or chest pain. B12 level very low replaced intramuscularly. Plan is for discharge to SNF for rehab. COVID-19 negative. Vitals/I&O Vitals/I&O: Vital Signs Date Time Temp Pulse Resp B/P (MAP) Pulse Ox O2 Delivery O2 Flow Rate FiO2 11/13/20 06:17 Room Air 11/13/20 03:00 98.0 73 16 150/86 (107) 95 98.0 I & O 11/12/20 11/12/2021 15:00 23:00 07:00 Intake Total 120 ml Output Total 550 ml Balance 120 ml -550 ml Physical Exam General: Alert, Oriented X3, Cooperative Lungs: Clear Labs Labs: Laboratory Tests Test 11/13/20 04:38 Sodium Level 140 mmol/L (136-145) Potassium Level 4.7 mmol/L (3.5-5.1) Chloride Level 104 mmol/L (98-107) Carbon Dioxide Level 34 mmol/L (21-32) Anion Gap 2 (6-14) Blood Urea Nitrogen 7 mg/dL (8-26) Creatinine 0.7 mg/dL (0.7-1.3) Estimated GFR (Cockcroft-Gault) 114.6 Glucose Level 89 mg/dL (70-99) Calcium Level 9.1 mg/dL (8.5-10.1) Assessment and Plan Assessmemt and Plan Problems Medical Problems: (1) Acetabulum fracture, right Status: Acute (2) Fracture of pubic ramus Status: Acute (3) Intractable pain Status: Acute (4) Sacral fracture, closed Status: Acute Comment Review of Relevant I have reviewed the following items yudy (where applicable) has been applied. Justifications for Admission Other Justification Fall with pubic fracture CHAKA BAUTISTA MD Nov 13, 2020 07:13
[2020-11-13] MEDS ORDERED: CYANOCOBALAMIN (VITAMIN B-12) 1,000 MCG/ML VIAL. IM ONE (08:00)
[2020-11-13] MEDS: LISINOPRIL 10 MG TABLET PO SCH ×2 (08:50→21:00)
[2020-11-13] MEDS: TAMSULOSIN 0.4 MG CAP.ER.24H. PO SCH (08:50)
--- NOTE | 2020-11-13 09:58 | NUR ---
SW following. Discussed with RN, awaiting insurance auth for transfer to [facility]. COVID-19 negative. [facility] notified. [facility] will continue to follow. Addendum: 11/13/20 at 1252 by CELSO MENG Discharge orders and negative COVID faxed to [facility], still awaiting insurance auth.
[2020-11-13 11:00] VITALS: BP 129/80
[2020-11-13] MEDS ORDERED: ACET325T21 PO (11:42)
[2020-11-13] MEDS ORDERED: HYDR-2765 PO (11:42)
[2020-11-13] MEDS ORDERED: CYAN1TAB50 SL (11:42)
--- NOTE | 2020-11-13 11:49 | SNU/HH DC ---
DISCHARGE ORDERS DISCHARGE INFORMATION: DISCHARGE DATE: Nov 13, 2020 FINAL DIAGNOSIS Problems Medical Problems: (1) Acetabulum fracture, right Status: Acute (2) Fracture of pubic ramus Status: Acute (3) Intractable pain Status: Acute (4) Sacral fracture, closed Status: Acute CONDITION ON DISCHARGE: Stable CODE STATUS: Code Status: Full ALF: SNF STAY <30 DAYS: Yes POST DISCHARGE ORDERS: ACTIVITY ORDERS: Activity as tolerated WEIGHT BEARING STATUS: Non weight bearing (Right foot non-weightbearing) DIET AFTER DISCHARGE: Regular WOUND/INCISION CARE: Keep wound/cast CDI CHECKS AFTER DISCHARGE: CHECKS AFTER DISCHARGE: Check blood press - daily FOLLOW-UP: Additional Instructions: [facility] [address] [facility], [address] [address] TREATMENT/EQUIPMENT ORDERS: ADAPTIVE EQUIPMENT NEEDED: Walker Physical Therapy For: Evalulation/Treatment Occupational Therapy For: Evaluation/Treatment DISCHARGE MEDICATIONS: Home Meds Active Scripts Ciprofloxacin Hcl (CIPRO) 250 Mg Tablet, 1 TAB PO BID for Klebsiella UTI for 14 Days, #28 TAB 0 Refills Prov:CHAKA BAUTISTA MD 11/15/20 Hydrocodone Bit/Acetaminophen (HYDROCODONE-APAP 7.5-325 ) 1 Tab Tablet, 1 TAB PO PRN Q6HRS PRN for MODERATE TO SEVERE PAIN for 6 Days, #20 TAB Prov:CHAKA BAUTISTA MD 11/13/20 Acetaminophen (ACETAMINOPHEN) 325 Mg Tablet, 650 MG PO PRN Q4HRS PRN for TEMP OVER 100.4F OR MILD PAIN for 30 Days, #120 TAB Prov:CHAKA BAUTISTA MD 11/13/20 Cyanocobalamin/Cobamamide (Vitamin B-12 5,000 Mcg Tab Sl) 1 Each Tab.subl, 1 EACH SL DAILY for B12 deficiency for 30 Days, #30 TAB 11 Refills Prov:CHAKA BAUTISTA MD 11/13/20 Metoprolol Succinate (Metoprolol Succinate) 50 Mg Tab.er.24h, 0.5 TAB PO DAILY, #90 TAB Prov:ZAK CONTRERAS MD 07/26/16 Tiotropium [place] (SPIRIVA) 18 Mcg Cap.w.dev, 1 CAP IH DAILY, #30 CAP 3 Refills Prov:KIERSTEN MITCHELL MD 12/04/15 Lisinopril (LISINOPRIL) 10 Mg Tablet, 20 TAB PO BID, #30 TAB 5 Refills Prov:KEIRSTEN MITCHELL MD 12/04/15 Reported Medications Vitamin D3/Folic Acid (Noxifol-D3 2,500 Unit-1 mg Tab) 2,500 Unit Tablet, 4000 UNIT PO DAILY for supplement, TAB 10/31/20 Tamsulosin Hcl (FLOMAX) 0.4 Mg Cap.er.24h, 1 CAP PO DAILY for prostate, #30 CAP 11 Refills 10/31/20 Amlodipine Besylate (AMLODIPINE BESYLATE) 10 Mg Tablet, 10 MG PO DAILY for htn, TAB 10/31/20 Albuterol Sulfate (Proair Hfa) 8.5 Gm Hfa.aer.ad, 1-2 PUFF INH PRN Q4-6HRS PRN for SHORTNESS OF BREATH, #9 07/25/16 Lansoprazole (LANSOPRAZOLE) 30 Mg Capsule.dr, 1 CAP PO DAILY, #30 CAP 5 Refills 11/30/15 CHAKA BAUTISTA MD Nov 13, 2020 11:49
[2020-11-13 15:00] VITALS: BP 142/80
[2020-11-13 19:00] VITALS: BP 127/75
[2020-11-13] MEDS: PSYLLIUM HUSK (SUGAR FREE) 1 PKT PACKET PO SCH (21:00)
[2020-11-13] MEDS: ENOXAPARIN 40 MG/0.4 ML SYRINGE. SQ SCH (21:58)
[2020-11-13 23:00] VITALS: BP 122/77
[2020-11-14] VITALS (7 sets, daily range): BP systolic 110–174; BP diastolic 55–90
[2020-11-14] MEDS: HYDROcodone/APAP 7.5/325MG 1 TAB TABLET PO PRN ×3 (04:05→21:18)
--- NOTE | 2020-11-14 07:17 | PDOC ---
[employer] PROGRESS NOTE Date of Service DOS: DATE: 11/14/20 TIME: 07:17 Chief Complaint Chief Complaint A/P: Mechanical fall Acute fractures involving the right inferior pubic ramus, right pubic root/anterior acetabulum and right sacral ala Severe protein malnutrition History of CAD GERD History of hypertension Right ankle fracture - still immobilized in cast Macrocytic anemia - B12 low - replaced Admit to medicine for further management Ortho consult Fall precautions IV and p.o. pain control Lovenox for DVT prophylaxis Protonix GI prophylaxis ADA diet Full code Discussed with RN and SW Disposition inpatient management as above Surrogate decision maker is History of Present Illness History of Present Illness Mr Dowling is a 60 year old male w/ PMHx GERD, HTN, bilateral neuropathy brought in by EMS after a fall last night. Patient fell on his right hip and complains of severe pain, especially upon movement. He had recent surgical repair of ankle fractures and was discharged from [facility] on 11/03/20. He has a cast on his lower right leg. Denies hitting his head, denies LOC. Denies left hip and leg pain. Patient received last dose of [employer] COVID vaccine 08/23/20. Last had food and drinks last night at dinner. 11/11: Found on CT with acute fractures involving the right inferior pubic ramus, right pubic root/anterior acetabulum and right sacral ala. Pain is 10, he can work with therapy yet. 11/12: Afebrile. Even with transition from bed to chair with physical therapy he was unable to use walker appropriately and they have recommended acute rehab especially since he cannot stop himself from bearing some weight on his right foot he claims due to the weight of the cast. He is amenable to acute rehab though frustrated. 11/13: Afebrile. Still some pain on lifting the right leg. No shortness of breath or chest pain. B12 level very low replaced intramuscularly. Plan is for discharge to SNF for rehab. COVID-19 negative. Pain is worse today. No BM. BP up. Was afebrile this morning. No shortness of breath or chest pain. He is having some pain on urination. Vitals/I&O Vitals/I&O: Vital Signs Date Time Temp Pulse Resp B/P (MAP) Pulse Ox O2 Delivery O2 Flow Rate FiO2 11/14/20 04:35 Room Air 11/14/20 03:00 97.7 77 18 150/86 (107) 95 97.7 I & O 11/13/20 11/13/20 11/14/20 15:00 23:00 07:00 Intake Total 320 ml 100 ml Output Total 200 ml 550 ml 575 ml Balance -200 ml -230 ml -475 ml Physical Exam General: Alert, Oriented X3, Cooperative Lungs: Clear Assessment and Plan Assessmemt and Plan Problems Medical Problems: (1) Acetabulum fracture, right Status: Acute (2) Fracture of pubic ramus Status: Acute (3) Intractable pain Status: Acute (4) Sacral fracture, closed Status: Acute Comment Review of Relevant I have reviewed the following items yudy (where applicable) has been applied. Medications: Current Medications Medications (Trade) Dose Ordered Sig/Maryann Route PRN Reason Start Time Stop Time Status Last Admin Dose Admin Cyanocobalamin (Vitamin B-12 Inj) 1,000 mcg 1X ONCE IM 11/13/20 08:00 11/13/20 08:02 DC 11/13/20 08:48 Justifications for Admission Other Justification Fall with pubic fracture CHAKA BAUTISTA MD Nov 14, 2020 07:17
[2020-11-14] MEDS: LISINOPRIL 10 MG TABLET PO SCH ×2 (08:43→21:19)
[2020-11-14] MEDS: TAMSULOSIN 0.4 MG CAP.ER.24H. PO SCH (08:43)
[2020-11-14] MEDS ORDERED: IV NORMAL SALINE 1000ML BAG 1,000 ML IV ONE (12:30)
[2020-11-14] MEDS: HYDROmorphone 2 MG/ML VIAL IVP PRN (12:39)
[2020-11-14] MEDS ORDERED: KETOROLAC 30 MG/ML VIAL. IVP ONE (12:45)
[2020-11-14] MEDS ORDERED: TAMSULOSIN 0.4 MG CAP.ER.24H. PO ONE (12:45)
[2020-11-14] MEDS: PIPERACILLIN/TAZOBACTAM 3.375 GM in IV NORMAL SALINE 50ML 50 ML IV SCH ×3 (13:00→23:25)
[2020-11-14] MEDS: POLYETHYLENE GLYCOL 3350 17 GM PACKET. PO SCH (13:11)
--- NOTE | 2020-11-14 13:49 | NUR ---
UA collected and sent to lab
[2020-11-14 13:59] LABS: BILIRUBIN,URINE NEGATIVE (NEG); COLOR,URINE YELLOW; NITRITE,URINE NEGATIVE (NEG); PROTEIN,URINE NEGATIVE (NEG-TRACE)
[2020-11-14 14:08] LABS: CLARITY,URINE CLEAR; WBC,URINE >40 /HPF (0-4)
[2020-11-14 14:10] LABS: BACTERIA,URINE MODERATE /HPF (0-FEW); RBC,URINE OCC /HPF (0-2)
--- NOTE | 2020-11-14 17:37 | RAD ---
EXAM: XR CHEST 1V 11/14/2020 1:34 PM CLINICAL INDICATION: Fever COMPARISON: Chest radiograph 11/10/2020 TECHNIQUE: AP view of the chest FINDINGS: The heart is normal in size. There are calcified mediastinal lymph nodes. Lungs are adequa tely expanded. Increased bandlike opacities at the left lung base. The lungs are otherwise clear pleu ral effusion, or pneumothorax. Spinal stimulators are unchanged. IMPRESSION: Increased bandlike opacities at the left lung base, most likely atelectasis. Electronically signed by: Karmen Munoz MD (11/14/2020 5:35 PM) [id number]
[2020-11-14] MEDS ORDERED: TAMSULOSIN 0.4 MG CAP.ER.24H. PO SCH (21:00)
[2020-11-14] MEDS: ENOXAPARIN 40 MG/0.4 ML SYRINGE. SQ SCH (21:18)
[2020-11-14] MEDS: PSYLLIUM HUSK (SUGAR FREE) 1 PKT PACKET PO SCH (21:19)
[2020-11-15 03:28] VITALS: BP 152/81
[2020-11-15] MEDS: PIPERACILLIN/TAZOBACTAM 3.375 GM in IV NORMAL SALINE 50ML 50 ML IV SCH ×2 (05:27→12:31)
[2020-11-15 07:00] VITALS: BP 148/82
[2020-11-15 08:06] LABS: BASO % 0 % (0-3); EOS % 0 % (0-3); HEMATOCRIT 32.7 % (39.0-53.0); HEMOGLOBIN 11.4 g/dL (13.0-17.5); LYMPH # 1.1 x10^3/uL (1.0-4.8); LYMPH % 12 % (24-48); MEAN CORPUSCULAR HEMOGLOBIN 38 pg (25-35); MEAN CORPUSCULAR HGB CONC 35 g/dL (31-37); MEAN CORPUSCULAR VOLUME 108 fL (79-100); MONO # 0.6 x10^3/uL (0.0-1.1); MONO % 7 % (0-9); NEUT # 7.2 x10^3/uL (1.8-7.7); NEUT % 81 % (31-73); PLATELET COUNT 217 x10^3/uL (140-400); RED BLOOD COUNT 3.02 x10^6/uL (4.30-5.70); RED CELL DISTRIBUTION WIDTH 14.7 % (11.5-14.5); WHITE BLOOD COUNT 8.9 x10^3/uL (4.0-11.0)
[2020-11-15 08:22] LABS: ALBUMIN 2.2 g/dL (3.4-5.0); ALBUMIN/GLOBULIN RATIO 0.6 (1.0-1.7); CALCIUM 8.7 mg/dL (8.5-10.1); CREATININE 0.6 mg/dL (0.7-1.3); POTASSIUM 4.2 mmol/L (3.5-5.1); TOTAL BILIRUBIN 1.1 mg/dL (0.2-1.0); TOTAL PROTEIN 5.7 g/dL (6.4-8.2)
[2020-11-15] MEDS: TAMSULOSIN 0.4 MG CAP.ER.24H. PO SCH (08:41)
[2020-11-15] MEDS: LISINOPRIL 10 MG TABLET PO SCH (08:42)
[2020-11-15] MEDS: POLYETHYLENE GLYCOL 3350 17 GM PACKET. PO SCH (08:43)
--- NOTE | 2020-11-15 09:55 | PDOC ---
[employer] PROGRESS NOTE Date of Service DOS: DATE: 11/15/20 TIME: 09:53 Chief Complaint Chief Complaint A/P: Mechanical fall Acute fractures involving the right inferior pubic ramus, right pubic root/anterior acetabulum and right sacral ala Severe protein malnutrition History of CAD GERD History of hypertension Right ankle fracture - still immobilized in cast Macrocytic anemia - B12 low - replaced UTI - likely due to urinary retention from BPH, zosyn Constipation- opioid induced Admit to medicine for further management Ortho consult Fall precautions IV and p.o. pain control Lovenox for DVT prophylaxis Protonix GI prophylaxis ADA diet Full code Discussed with RN and SW Disposition inpatient management as above Surrogate decision maker is History of Present Illness History of Present Illness Mr Dowling is a 60 year old male w/ PMHx GERD, HTN, bilateral neuropathy brought in by EMS after a fall last night. Patient fell on his right hip and complains of severe pain, especially upon movement. He had recent surgical repair of ankle fractures and was discharged from [facility] on 11/03/20. He has a cast on his lower right leg. Denies hitting his head, denies LOC. Denies left hip and leg pain. Patient received last dose of [employer] COVID vaccine 08/23/20. Last had food and drinks last night at dinner. 11/11: Found on CT with acute fractures involving the right inferior pubic ramus, right pubic root/anterior acetabulum and right sacral ala. Pain is /10, he can work with therapy yet. 11/12: Afebrile. Even with transition from bed to chair with physical therapy he was unable to use walker appropriately and they have recommended acute rehab rustam ecially since he cannot stop himself from bearing some weight on his right foot he claims due to the weight of the cast. He is amenable to acute rehab though frustrated. 11/13: Afebrile. Still some pain on lifting the right leg. No shortness of breath or chest pain. B12 level very low replaced intramuscularly. Plan is for discharge to SNF for rehab. COVID-19 negative. 11/14: Pain is worse today. No BM. BP up. Was febrile this morning. No shortness of breath or chest pain. He is having some pain on urination and little UOP despite fluids. UA with LE. Started on zosyn. CXR with left basilar atelectasis Afebrile. Feeling much better than yesterday. Still without BM despite bowel regimen. Awaiting post void residual. Tolerating Zosyn well. Primary urine culture with greater than 100,000 gram-negative colony-forming units Vitals/I&O Vitals/I&O: Vital Signs Date Time Temp Pulse Resp B/P (MAP) Pulse Ox O2 Delivery O2 Flow Rate FiO2 11/15/20 08:43 89 148/82 11/15/20 07:00 98.5 18 93 Room Air 98.5 I & O 11/14/20 11/14/20 11/15/20 15:00 23:00 07:00 Intake Total 556 ml 360 ml Balance 556 ml 360 ml Physical Exam General: Alert, Oriented X3, Cooperative Lungs: Clear Labs Labs: Laboratory Tests Test 11/14/20 13:45 11/15/20 06:50 Urine Collection Type Unknown Urine Color Yellow Urine Clarity Clear Urine pH 8.0 (<5.0-8.0) Urine Specific [place] 1.015 (1.000-1.030) Urine Protein Negative mg/dL (NEG-TRACE) Urine Glucose (UA) Negative mg/dL (NEG) Urine Ketones (Stick) Trace mg/dL (NEG) Urine Blood Negative (NEG) Urine Nitrite Negative (NEG) Urine Bilirubin Negative (NEG) Urine Urobilinogen Dipstick 1.0 mg/dL (0.2 mg/dL) Urine Leukocyte Esterase Moderate (NEG) Urine RBC Occ /HPF (0-2) Urine WBC >40 /HPF (0-4) Urine Squamous Epithelial Cells Few /LPF Urine Bacteria Moderate /HPF (0-FEW) Urine Mucus Mod /LPF White Blood Count 8.9 x10^3/uL (4.0-11.0) Red Blood Count 3.02 x10^6/uL (4.30-5.70) Hemoglobin 11.4 g/dL (13.0-17.5) Hematocrit 32.7 % (39.0-53.0) Mean Corpuscular Volume 108 fL (79-100) Mean Corpuscular Hemoglobin 38 pg (25-35) Mean Corpuscular Hemoglobin Concent 35 g/dL (31-37) Red Cell Distribution Width 14.7 % (11.5-14.5) Platelet Count 217 x10^3/uL (140-400) Neutrophils (%) (Auto) 81 % (31-73) Lymphocytes (%) (Auto) 12 % (24-48) Monocytes (%) (Auto) 7 % (0-9) Eosinophils (%) (Auto) 0 % (0-3) Basophils (%) (Auto) 0 % (0-3) Neutrophils # (Auto) 7.2 x10^3/uL (1.8-7.7) Lymphocytes # (Auto) 1.1 x10^3/uL (1.0-4.8) Monocytes # (Auto) 0.6 x10^3/uL (0.0-1.1) Eosinophils # (Auto) 0.0 x10^3/uL (0.0-0.7) Basophils # (Auto) 0.0 x10^3/uL (0.0-0.2) Sodium Level 133 mmol/L (136-145) Potassium Level 4.2 mmol/L (3.5-5.1) Chloride Level 98 mmol/L (98-107) Carbon Dioxide Level 27 mmol/L (21-32) Anion Gap 8 (6-14) Blood Urea Nitrogen 7 mg/dL (8-26) Creatinine 0.6 mg/dL (0.7-1.3) Estimated GFR (Cockcroft-Gault) 137.0 BUN/Creatinine Ratio 12 (6-20) Glucose Level 85 mg/dL (70-99) Calcium Level 8.7 mg/dL (8.5-10.1) Total Bilirubin 1.1 mg/dL (0.2-1.0) Aspartate Amino Transf (AST/SGOT) 35 U/L (15-37) Alanine Aminotransferase (ALT/SGPT) 44 U/L (16-63) Alkaline Phosphatase 70 U/L (46-116) Total Protein 5.7 g/dL (6.4-8.2) Albumin 2.2 g/dL (3.4-5.0) Albumin/Globulin Ratio 0.6 (1.0-1.7) Assessment and Plan Assessmemt and Plan Problems Medical Problems: (1) Acetabulum fracture, right Status: Acute (2) Fracture of pubic ramus Status: Acute (3) Intractable pain Status: Acute (4) Sacral fracture, closed Status: Acute Comment Review of Relevant I have reviewed the following items yudy (where applicable) has been applied. Medications: Current Medications Medications (Trade) Dose Ordered Sig/Maryann Route PRN Reason Start Time Stop Time Status Last Admin Dose Admin Sodium Chloride 1,000 ml @ 125 mls/hr 1X ONCE IV 11/14/20 12:30 11/14/20 20:29 DC 11/14/20 13:05 Polyethylene Glycol (miraLAX PACKET) 17 gm DAILY PO 11/14/20 12:45 11/15/20 08:43 Tamsulosin HCl (Flomax) 0.4 mg 1X ONCE PO 11/14/20 12:45 11/14/20 12:46 DC 11/14/20 13:10 Ketorolac Tromethamine (Toradol 30mg Vial) 30 mg 1X ONCE IVP 11/14/20 12:45 11/14/20 12:46 DC 11/14/20 13:06 Piperacillin Sod/ Tazobactam Sod 3.375 gm/Sodium Chloride 50 ml @ 100 mls/hr Q6HRS IV 11/14/20 13:00 11/15/20 05:27 Justifications for Admission Other Justification Fall with pubic fracture CHAKA BAUTISTA MD Nov 15, 2020 09:55
[2020-11-15] MEDS ORDERED: SENNOSIDES 8.6 MG TABLET PO SCH (10:00)
[2020-11-15] MEDS ORDERED: DOCUSATE SODIUM 100 MG CAPSULE. PO SCH (10:00)
[2020-11-15] MEDS ORDERED: MAGNESIUM HYDROXIDE 2,400 MG/30 ML ORAL.SUSP. PO ONE (10:00)
--- NOTE | 2020-11-15 10:17 | NUR ---
SW following. Discussed with RN, updates faxed to [facility] - still pending insurance auth. COVID-19 negative. YUSRA will continue to follow. Addendum: 11/15/20 at 1607 by CELSO MENG Insurance approved transfer to [facility]. New discharge orders faxed to [facility]. Dr. Alberts, RN, pt and pt's notified. Awaiting transportation time.
[2020-11-15] MEDS: HYDROcodone/APAP 7.5/325MG 1 TAB TABLET PO PRN (10:52)
[2020-11-15 11:00] VITALS: BP 145/82
[2020-11-15 15:00] VITALS: BP 141/85
[2020-11-15] MEDS ORDERED: CIPR250T30 PO (15:56)
--- NOTE | 2020-11-15 16:00 | PDOC3 ---
Discharge Summary Visit Information Date of Admission: Nov 10, 2020 Date of Discharge: Nov 15, 2020 Admitting Diagnosis: Right pubic ramus fracture Final Diagnosis Problems Medical Problems: (1) Acetabulum fracture, right Status: Acute (2) Fracture of pubic ramus Status: Acute (3) Intractable pain Status: Acute (4) Sacral fracture, closed Status: Acute Brief Hospital Course Allergies Allergies Coded Allergies Type Severity Reaction Last Updated Verified codeine Adverse Reaction Mild Nausea and Vomiting 06/28/14 Yes Vital Signs Vital Signs Date Time Temp Pulse Resp B/P (MAP) Pulse Ox O2 Delivery O2 Flow Rate FiO2 11/15/20 15:00 98.3 79 18 141/85 (103) 95 Room Air 98.3 Lab Results Laboratory Tests Test 11/14/20 13:45 11/15/20 06:50 Urine Collection Type Unknown Urine Color Yellow Urine Clarity Clear Urine pH 8.0 (<5.0-8.0) Urine Specific [place] 1.015 (1.000-1.030) Urine Protein Negative mg/dL (NEG-TRACE) Urine Glucose (UA) Negative mg/dL (NEG) Urine Ketones (Stick) Trace mg/dL (NEG) Urine Blood Negative (NEG) Urine Nitrite Negative (NEG) Urine Bilirubin Negative (NEG) Urine Urobilinogen Dipstick 1.0 mg/dL (0.2 mg/dL) Urine Leukocyte Esterase Moderate (NEG) Urine RBC Occ /HPF (0-2) Urine WBC >40 /HPF (0-4) Urine Squamous Epithelial Cells Few /LPF Urine Bacteria Moderate /HPF (0-FEW) Urine Mucus Mod /LPF White Blood Count 8.9 x10^3/uL (4.0-11.0) Red Blood Count 3.02 x10^6/uL (4.30-5.70) Hemoglobin 11.4 g/dL (13.0-17.5) Hematocrit 32.7 % (39.0-53.0) Mean Corpuscular Volume 108 fL (79-100) Mean Corpuscular Hemoglobin 38 pg (25-35) Mean Corpuscular Hemoglobin Concent 35 g/dL (31-37) Red Cell Distribution Width 14.7 % (11.5-14.5) Platelet Count 217 x10^3/uL (140-400) Neutrophils (%) (Auto) 81 % (31-73) Lymphocytes (%) (Auto) 12 % (24-48) Monocytes (%) (Auto) 7 % (0-9) Eosinophils (%) (Auto) 0 % (0-3) Basophils (%) (Auto) 0 % (0-3) Neutrophils # (Auto) 7.2 x10^3/uL (1.8-7.7) Lymphocytes # (Auto) 1.1 x10^3/uL (1.0-4.8) Monocytes # (Auto) 0.6 x10^3/uL (0.0-1.1) Eosinophils # (Auto) 0.0 x10^3/uL (0.0-0.7) Basophils # (Auto) 0.0 x10^3/uL (0.0-0.2) Sodium Level 133 mmol/L (136-145) Potassium Level 4.2 mmol/L (3.5-5.1) Chloride Level 98 mmol/L (98-107) Carbon Dioxide Level 27 mmol/L (21-32) Anion Gap 8 (6-14) Blood Urea Nitrogen 7 mg/dL (8-26) Creatinine 0.6 mg/dL (0.7-1.3) Estimated GFR (Cockcroft-Gault) 137.0 BUN/Creatinine Ratio 12 (6-20) Glucose Level 85 mg/dL (70-99) Calcium Level 8.7 mg/dL (8.5-10.1) Total Bilirubin 1.1 mg/dL (0.2-1.0) Aspartate Amino Transf (AST/SGOT) 35 U/L (15-37) Alanine Aminotransferase (ALT/SGPT) 44 U/L (16-63) Alkaline Phosphatase 70 U/L (46-116) Total Protein 5.7 g/dL (6.4-8.2) Albumin 2.2 g/dL (3.4-5.0) Albumin/Globulin Ratio 0.6 (1.0-1.7) Laboratory Tests Test 11/15/20 06:50 White Blood Count 8.9 x10^3/uL (4.0-11.0) Red Blood Count 3.02 x10^6/uL (4.30-5.70) Hemoglobin 11.4 g/dL (13.0-17.5) Hematocrit 32.7 % (39.0-53.0) Mean Corpuscular Volume 108 fL (79-100) Mean Corpuscular Hemoglobin 38 pg (25-35) Mean Corpuscular Hemoglobin Concent 35 g/dL (31-37) Red Cell Distribution Width 14.7 % (11.5-14.5) Platelet Count 217 x10^3/uL (140-400) Neutrophils (%) (Auto) 81 % (31-73) Lymphocytes (%) (Auto) 12 % (24-48) Monocytes (%) (Auto) 7 % (0-9) Eosinophils (%) (Auto) 0 % (0-3) Basophils (%) (Auto) 0 % (0-3) Neutrophils # (Auto) 7.2 x10^3/uL (1.8-7.7) Lymphocytes # (Auto) 1.1 x10^3/uL (1.0-4.8) Monocytes # (Auto) 0.6 x10^3/uL (0.0-1.1) Eosinophils # (Auto) 0.0 x10^3/uL (0.0-0.7) Basophils # (Auto) 0.0 x10^3/uL (0.0-0.2) Sodium Level 133 mmol/L (136-145) Potassium Level 4.2 mmol/L (3.5-5.1) Chloride Level 98 mmol/L (98-107) Carbon Dioxide Level 27 mmol/L (21-32) Anion Gap 8 (6-14) Blood Urea Nitrogen 7 mg/dL (8-26) Creatinine 0.6 mg/dL (0.7-1.3) Estimated GFR (Cockcroft-Gault) 137.0 BUN/Creatinine Ratio 12 (6-20) Glucose Level 85 mg/dL (70-99) Calcium Level 8.7 mg/dL (8.5-10.1) Total Bilirubin 1.1 mg/dL (0.2-1.0) Aspartate Amino Transf (AST/SGOT) 35 U/L (15-37) Alanine Aminotransferase (ALT/SGPT) 44 U/L (16-63) Alkaline Phosphatase 70 U/L (46-116) Total Protein 5.7 g/dL (6.4-8.2) Albumin 2.2 g/dL (3.4-5.0) Albumin/Globulin Ratio 0.6 (1.0-1.7) Brief Hospital Course Mr Dowling is a 60 year old male w/ PMHx GERD, HTN, bilateral neuropathy brought in by EMS after a fall last night. Patient fell on his right hip and complains of severe pain, especially upon movement. He had recent surgical repair of ankle fractures and was discharged from [facility] on 11/03/20. He has a cast on his lower right leg. Denies hitting his head, denies LOC. Denies left hip and leg pain. Patient received last dose of [employer] COVID vaccine 08/23/20. Last had food and drinks last night at dinner. 11/11: Found on CT with acute fractures involving the right inferior pubic ramus, right pubic root/anterior acetabulum and right sacral ala. Pain is 11/02, he can work with therapy yet. 11/12: Afebrile. Even with transition from bed to chair with physical therapy he was unable to use walker appropriately and they have recommended acute rehab especially since he cannot stop himself from bearing some weight on his right foot he claims due to the weight of the cast. He is amenable to acute rehab though frustrated. 11/13: Afebrile. Still some pain on lifting the right leg. No shortness of breath or chest pain. B12 level very low replaced intramuscularly. Plan is for discharge to SNF for rehab. COVID-19 negative. 11/14: Pain is worse today. No BM. BP up. Was febrile this morning. No shortness of breath or chest pain. He is having some pain on urination and little UOP despite fluids. UA with LE. Started on zosyn. CXR with left basilar atelectasis Afebrile. Feeling much better than yesterday. Still without BM despite bowel regimen. Awaiting post void residual. Tolerating Zosyn well. Primary urine culture with greater than 100,000 gram-negative colony-forming units, transitioned to CIPRO 250mg BID for 14 days for prostatitis due to BPH. Consults: Orthopedic surgery Problem list: Mechanical fall Acute fractures involving the right inferior pubic ramus, right pubic root/anterior acetabulum and right sacral ala Severe protein malnutrition History of CAD GERD History of hypertension Right ankle fracture - still immobilized in cast Macrocytic anemia - B12 low - replaced UTI - likely due to urinary retention from BPH, zosyn Constipation- opioid induced Greater than 30 minutes spent on d/c Discharge Information Condition at Discharge: Improved Follow Up: Weeks (1) Disposition/Orders: D/C to Another Facility (SNF) Scheduled Amlodipine Besylate (Amlodipine Besylate) 10 Mg Tablet, 10 MG PO DAILY for htn, (Reported) Entered as Reported by: Kristen Holm on 10/31/20 0222 Last Action: Continued on 11/10/201353 by DALIA HINES MD Ciprofloxacin Hcl (Cipro) 250 Mg Tablet, 1 TAB PO BID for Klebsiella UTI for 14 Days, #28 Ref 0 Prescribed by: CHAKA BAUTISTA MD on 11/15/20 1556 Cyanocobalamin/Cobamamide (Vitamin B-12 5,000 Mcg Tab Sl) 1 Each Tab.subl, 1 EACH SL DAILY for B12 deficiency for 30 Days, #30 Ref 11 Prescribed by: CHAKA BAUTISTA MD on 11/13/20 1142 Lansoprazole (Lansoprazole) 30 Mg Capsule.dr, 1 CAP PO DAILY, #30 Ref 5 (Reported) Entered as Reported by: BRIGITTE IYER on 11/30/15 0944 Lisinopril (Lisinopril) 10 Mg Tablet, 20 TAB PO BID, #30 Ref 5 Prescribed by: KIERSTEN MITCHELL on 12/04/15923 Last Action: Continued on 11/10/201353 by DALIA HINES MD Metoprolol Succinate (Metoprolol Succinate) 50 Mg Tab.er.24h, 0.5 TAB PO DAILY, #90 Prescribed by: ZAK CONTRERAS on 07/26/16 1325 Tamsulosin Hcl (Flomax) 0.4 Mg Cap.er.24h, 1 CAP PO DAILY for prostate, #30 Ref 11 (Reported) Entered as Reported by: Kristen Holm on 10/31/20 0600 Last Action: Continued on 11/10/201353 by DALIA HINES MD Tiotropium [place] (Spiriva) 18 Mcg Cap.w.dev, 1 CAP IH DAILY, #30 Ref 3 Prescribed by: KIERSTEN MITCHELL on 12/04/1524 Last Action: Converted on 11/10/201353 by DALIA HINES MD Vitamin D3/Folic Acid (Noxifol-D3 2,500 Unit-1 mg Tab) 2,500 Unit Tablet, 4,000 UNIT PO DAILY for supplement, (Reported) Entered as Reported by: Kristen Holm on 10/31/20 0601 Scheduled PRN Acetaminophen (Acetaminophen) 325 Mg Tablet, 650 MG PO PRN Q4HRS PRN for TEMP OVER 100.4F OR MILD PAIN for 30 Days, #120 Prescribed by: CHAKA BAUTISTA MD on 11/13/20 1142 Albuterol Sulfate (Proair Hfa) 8.5 Gm Hfa.aer.ad, 1-2 PUFF INH PRN Q4-6HRS PRN for SHORTNESS OF BREATH, #9 (Reported) Entered as Reported by: DIEGO PA on 07/25/16 1405 Hydrocodone Bit/Acetaminophen (Hydrocodone-Apap 7.5-325 ) 1 Tab Tablet, 1 TAB PO PRN Q6HRS PRN for MODERATE TO SEVERE PAIN for 6 Days, #20 Prescribed by: CHAKA BAUTISTA MD on 11/13/20 1144 Justicifation of Admission Dx: Justifications for Admission: Justification of Admission Dx: Yes CHAKA BAUTISTA MD Nov 15, 2020 16:00
--- NOTE | 2020-11-15 17:57 | NUR ---
Pt left at 1755 with transportation. will meet pt at facility. Called report to [facility] during shift change. Pt received Lortab for pain on the way out the door.
[2020-11-15] MEDS ORDERED: LACTOBACILLUS RHAMNOSUS GG 1 CAPSULE. PO SCH (21:00)
== END 2020-11-15 17:55 | DRG 535 ==
LOC: ER 07:04 → ED HOLD 11:14 → 4 NORTH 17:51
PROVIDERS: ADMIT Internal Medicine; ATTEND Internal Medicine
DX: S32.591A Other specified fracture of right pubis, initial encounter for closed fracture (principal); S32.401A Unspecified fracture of right acetabulum, initial encounter for closed fracture; E43 Unspecified severe protein-calorie malnutrition; S32.10XA Unspecified fracture of sacrum, initial encounter for closed fracture; J98.11 Atelectasis; N39.0 Urinary tract infection, site not specified; S32.501A Unspecified fracture of right pubis, initial encounter for closed fracture; D53.9 Nutritional anemia, unspecified; F17.200 Nicotine dependence, unspecified, uncomplicated; G62.9 Polyneuropathy, unspecified; I10 Essential (primary) hypertension; I25.10 Atherosclerotic heart disease of native coronary artery without angina pectoris; K21.9 Gastro-esophageal reflux disease without esophagitis; K59.03 Drug induced constipation; M85.80 Other specified disorders of bone density and structure, unspecified site; N40.0 Benign prostatic hyperplasia without lower urinary tract symptoms; N41.9 Inflammatory disease of prostate, unspecified; R33.8 Other retention of urine; S82.891A Other fracture of right lower leg, initial encounter for closed fracture; T40.2X5A Adverse effect of other opioids, initial encounter; Z20.822 Contact with and (suspected) exposure to COVID-19; Z79.82 Long term (current) use of aspirin; Z88.8 Allergy status to other drugs, medicaments and biological substances; Z68.21 Body mass index [BMI] 21.0-21.9, adult; Z79.899 Other long term (current) drug therapy; W18.39XA Other fall on same level, initial encounter; Y93.89 Activity, other specified; Y92.89 Other specified places as the place of occurrence of the external cause; Y99.8 Other external cause status
CPT/HCPCS: 36415; 71045; 72192; 73502; 80048; 80053; 81001; 82306; 82553; 82607; 83540; 83550; 83735; 84100; 84484; 85025; 85027; 87040; 87086; 93005; 96361; 96374; 96375; J1170; J1650; J1885; J2270; J2543; J3420; J7030; U0003; U0005; 97530-GP; 99285-25; G0378